=== PATIENT | female | born 1955 | race Hispanic/Latino ===

== ENCOUNTER 2019-07-14 23:49 | Inpatient (IN) | payer SELFPAY ==
[2019-07-15 00:34] LABS: #Basophils 0.1 thou/uL (0.0-0.2); #Eosinphils 0.4 thou/uL (0.0-0.7); #Lymphocytes 3.1 thou/uL (1.20-3.40); #Monocytes 0.8 thou/uL (0.11-0.59); %Basophils 1.2 % (0.0-1.0); %Eosinophils 3.1 % (0.0-10.0); %Lymphocytes 27.1 % (21.0-51.0); %Neutrophils 61.6 % (42.0-75.0); Hemoglobin 8.9 g/dL (12.0-16.0); Mean Corpuscular HGB CONC 32.2 g/dL (32.0-36.0); Mean Corpuscular Hemoglobin 29.3 pg (27.0-31.0); Mean Corpuscular Volume 90.9 fL (78.0-98.0); Platelet Count 239 thou/uL (130-400); RBC Distribution Width 12.7 % (11.5-14.5); Red Blood Cell (RBC) Count 3.05 mill/uL (4.20-5.40); White Blood Cell (WBC) Count 11.3 thou/uL (4.8-10.8)
[2019-07-15] MEDS ORDERED: Aspirin Chewable 81 MG TAB ONE (00:41)
[2019-07-15 00:59] LABS: ALT (SGPT) 15 U/L (8-55); AST (SGOT) 18 U/L (5-34); Albumin 2.5 g/dL (3.4-4.8); Alkaline Phosphatase 170 U/L (40-110); Anion Gap 15 mmol/L (10-20); BUN (Urea Nitrogen) 83 mg/dL (9.8-20.1); Bilirubin, Total 0.2 mg/dL (0.2-1.2); Calc. Creatinine Clearance 0 mL/min (70-130); Calcium 6.5 mg/dL (7.8-10.44); Carbon Dioxide 16 mmol/L (23-31); Chloride 103 mmol/L (98-107); Estimated GFR-MDRD 5; Globulin 3.5 g/dL (2.4-3.5); Glucose 157 mg/dL (80-115); Potassium 6.3 mmol/L (3.5-5.1); Sodium 128 mmol/L (136-145)
[2019-07-15 01:25] LABS: CKMB 14.6 ng/mL (0-6.6)
[2019-07-15 01:56] LABS: Bilirubin Negative (Negative); Blood, Urine 1+ (Negative); Clarity Turbid (Clear); Glucose, Urine (Dipstick) 300 mg/dL (Negative); Leukocyte Negative Leu/uL (Negative); Nitrite Negative (Negative); Protein, Urine (Dipstick) 600 mg/dL (Neg-Trace); RBC/HPF 0-3 HPF (0-3); Urobilinogen Normal mg/dL (Less than 2); Yeast-Budding Rare HPF (None Seen)
[2019-07-15 01:58] LABS: Bacteria/HPF 1+ HPF (None Seen)
[2019-07-15] MEDS ORDERED: Sodium Chloride 0.45% 1,000 ML IV SCH (02:30)
--- NOTE | 2019-07-15 02:40 | PDOC.HHP ---
Hospitalist HPI - History of Present Illness Shortness of breath with exertion History of Present Illness: Ms. Saba Lui presents with shortness of breath on exertion since yesterday and notably worse today. She has been generally weak and fatigued for several days. Reports having lower extremity swelling today. Patient poor historian. Daughter and son in room helping to provide most of her history. She denies any long car rides or flights but per ED reports patient apparently had a recent 12 hour car ride from [place]. ED Course: In the ED she had labs done that were significantly abnormal. Sodium 128, Potassium 6.3, Chloride 103, Carbon Dioxide 16, Anion Gap 15 BUN (Urea Nitrogen) 83, Creatinine 8.59, GFR 5 CKMB 14.6 Troponin I 0.110 BNP 378.5 D-dimer 2.56 WCC 11.3, Hgb 7.9, Hct 27.7, Platelets 239. CXR done. She was given 324 mg of aspirin and 2 L NS. Vitals unremarkable. Hospitalist ROS - Review of Systems Constitutional: reports: weakness, malaise. denies: fever, chills, sweats, other Eyes: denies: pain, vision change, conjunctivae inflammation, eyelid inflammation, redness, other ENT: denies: ear pain, ear discharge, nose pain, nose discharge, nose congestion , mouth pain, mouth swelling, throat pain, throat swelling, other Respiratory: reports: SOB with excertion. denies: cough, dry, shortness of breath, hemoptysis, pleuritic pain, sputum, wheezing, other Cardiovascular: denies: chest pain, palpitations, orthopnea, paroxysmal noc. dyspnea, edema, light headedness, other Gastrointestinal: denies: nausea, vomiting, abdominal pain, diarrhea, constipation, melena, hematochezia, other Genitourinary: denies: dysuria, frequency, incontinence, hematuria, retention, other Musculoskeletal: reports: other (leg swelling bilaterally). denies: neck pain, shoulder pain, arm pain, back pain, hand pain, leg pain, foot pain Skin: denies: rash, lesions, farhana, bruising, other Hospitalist History - Past Medical History Source: patient, family Cardiac: reports: HTN - Social History Smoking Status: Never smoker Alcohol: reports: None Drugs: reports: none Living Situation: With Family - Exam General Appearance: NAD, awake alert Eye: PERRL, anicteric sclera ENT: normocephalic atraumatic, no oropharyngeal lesions Neck: supple, no lymphadenopathy Heart: RRR, no murmur, no gallops, no rubs, normal peripheral pulses Respiratory: CTAB, no wheezes, no rales, no ronchi, normal chest expansion, no tachypnea Gastrointestinal: soft, non-tender, non-distended, normal bowel sounds Extremities: no cyanosis, no clubbing, 2+ LE edema (tense swelling) Neurological: cranial nerve grossly intact Musculoskeletal: normal tone, normal strength, no muscle wasting Psychiatric: normal affect, normal behavior, A&O x 3 Hospitalist Results - Labs Result Diagrams: 07/15/19 03:51 07/15/19 02:25 Lab results: WBC 11.3 thou/uL (4.8-10.8) H 07/15/19 00:23 Hgb 8.9 g/dL (12.0-16.0) L 07/15/19 00:23 Hct 27.7 % (36.0-47.0) L 07/15/19 00:23 MCV 90.9 fL (78.0-98.0) 07/15/19 00:23 Plt Count 239 thou/uL (130-400) 07/15/19 00:23 Neutrophils % 61.6 % (42.0-75.0) 07/15/19 00:23 Sodium 128 mmol/L (136-145) L 07/15/19 00:23 Potassium 6.3 mmol/L (3.5-5.1) H 07/15/19 00:23 Chloride 103 mmol/L (98-107) 07/15/19 00:23 Carbon Dioxide 16 mmol/L (23-31) L 07/15/19 00:23 BUN 83 mg/dL (9.8-20.1) H 07/15/19 00:23 Creatinine 8.59 mg/dL (0.6-1.1) H 07/15/19 00:23 Glucose 157 mg/dL (80-115) H 07/15/19 00:23 Calcium 6.5 mg/dL (7.8-10.44) L 07/15/19 00:23 Total Bilirubin 0.2 mg/dL (0.2-1.2) 07/15/19 00:23 AST 18 U/L (5-34) 07/15/19 00:23 ALT 15 U/L (8-55) 07/15/19 00:23 Alkaline Phosphatase 170 U/L (40-110) H 07/15/19 00:23 CK-MB (CK-2) 14.6 ng/mL (0-6.6) H* 07/15/19 00:23 Troponin I 0.110 ng/mL (< 0.028) H 07/15/19 00:23 B-Natriuretic Peptide 378.5 pg/mL (0-100) H 07/15/19 00:23 Serum Total Protein 6.0 g/dL (6.0-8.3) 07/15/19 00:23 Albumin 2.5 g/dL (3.4-4.8) L 07/15/19 00:23 Urine Ketones Negative mg/dL (Negative) 07/15/19 01:20 Urine Blood 1+ (Negative) A 07/15/19 01:20 Urine Nitrite Negative (Negative) 07/15/19 01:20 Ur Leukocyte Esterase Negative Emily/uL (Negative) 07/15/19 01:20 Urine RBC 0-3 HPF (0-3) 07/15/19 01:20 Urine WBC 7-10 HPF (0-3) A 07/15/19 01:20 Ur Squamous Epith Cells 11-20 HPF (0-3) A 07/15/19 01:20 Urine Bacteria 1+ HPF (None Seen) A 07/15/19 01:20 - EKG Interpretation EKG: NSR, HR 83, No ST changes. - Radiology Interpretation Chest x-ray Status: pending Hospitalist H&P A/P - Problem (1) Exertional shortness of breath Code(s): R06.02 - SHORTNESS OF BREATH Status: Acute (2) Lower extremity edema Code(s): R60.0 - LOCALIZED EDEMA Status: Acute (3) Acute renal failure (ARF) Status: Acute (4) Proteinuria Code(s): R80.9 - PROTEINURIA, UNSPECIFIED Status: Acute (5) Hyperkalemia Code(s): E87.5 - HYPERKALEMIA Status: Acute (6) Hypertension Code(s): I10 - ESSENTIAL (PRIMARY) HYPERTENSION Status: Chronic (7) Diabetes mellitus Code(s): E11.9 - TYPE 2 DIABETES MELLITUS WITHOUT COMPLICATIONS Status: Chronic - Plan Plan: IV fluids given in ED. Repeat BMP to re-assess lytes including Na+, K+, Mg+ and renal function. Consult nephrology. CK added given suspicion for rhabdomyolysis. Echo. Venous doppler. Check stool for occult blood. Continuous cardiac monitoring. PT/OT. Monitor BP. Hold nephrotoxic meds. Monitor glucose. Sliding scale initiated. Code status FULL Surrogate Decision maker is her daughter Sandra Kessler. Addendum - Physician - Physician Attestation Date/Time: 07/15/19 2423 I personally performed or re-performed the physical examination and medical decision making. I have verified all student documentation or findings, including history, physical exam and/or medical decision making. Patient and family deny h/o renal disease, SOB x 1-2 days is main symptom of presentation. K still remains very elevated, insulin and d50 + calcium gluconate ordered, will recheck in about 2 hours. Got thai, nephrology to see in AM, CK borderline
[2019-07-15] MEDS ORDERED: Dextrose 5% in Water 1,000 ML IV PRN (02:52)
[2019-07-15] MEDS ORDERED: Dextrose 50% Abboject 50 ML SYRINGE SLOW IVP PRN (02:52)
[2019-07-15 02:56] LABS: Anion Gap 18 mmol/L (10-20); BUN (Urea Nitrogen) 82 mg/dL (9.8-20.1); Calc. Creatinine Clearance 9 mL/min (70-130); Calcium 6.4 mg/dL (7.8-10.44); Carbon Dioxide 10 mmol/L (23-31); Chloride 105 mmol/L (98-107); Estimated GFR-MDRD 5; Glucose 172 mg/dL (80-115); Magnesium 2.2 mg/dL (1.6-2.6); Sodium 126 mmol/L (136-145); Uric Acid 6.1 mg/dL (2.6-6.0)
[2019-07-15 03:06] LABS: Phosphorus 9.2 mg/dL (2.3-4.7); Potassium 6.7 mmol/L (3.5-5.1)
[2019-07-15] MEDS ORDERED: Insulin Regular 300 UNITS/3 ML VIAL IVP SCH (03:45)
[2019-07-15] MEDS ORDERED: Insulin Regular 300 UNITS/3 ML VIAL ONE (03:48)
[2019-07-15] MEDS ORDERED: Calcium Gluconate 9.2 MEQ in Sodium Chloride 0.9% 100 ML IVPB SCH (04:00)
[2019-07-15 04:04] LABS: #Basophils 0.1 thou/uL (0.0-0.2); #Eosinphils 0.3 thou/uL (0.0-0.7); #Lymphocytes 1.8 thou/uL (1.20-3.40); #Monocytes 0.6 thou/uL (0.11-0.59); #Neutrophils 8.3 thou/uL (1.40-6.50); %Basophils 0.9 % (0.0-1.0); %Eosinophils 2.3 % (0.0-10.0); %Lymphocytes 16.5 % (21.0-51.0); %Monocytes 5.4 % (0.0-10.0); %Neutrophils 74.9 % (42.0-75.0); Hemoglobin 9.1 g/dL (12.0-16.0); Mean Corpuscular HGB CONC 32.4 g/dL (32.0-36.0); Mean Corpuscular Hemoglobin 29.4 pg (27.0-31.0); Mean Corpuscular Volume 90.6 fL (78.0-98.0); Mean Platelet Volume 9.4 fL (7.4-10.4); Platelet Count 245 thou/uL (130-400); RBC Distribution Width 12.7 % (11.5-14.5); Red Blood Cell (RBC) Count 3.08 mill/uL (4.20-5.40)
[2019-07-15] MEDS ORDERED: Dextrose 50% Abboject 50 ML SYRINGE ONE ×2 (04:10→08:04)
[2019-07-15] MEDS: Dextrose 50% Abboject 50 ML SYRINGE SLOW IVP SCH ×2 (04:10→08:13)
[2019-07-15 04:22] LABS: Phosphorus 9.3 mg/dL (2.3-4.7)
[2019-07-15 04:26] LABS: Troponin I 0.095 ng/mL (< 0.028)
[2019-07-15] MEDS ORDERED: Acetaminophen 325 MG/10.15 ML UDCUP PO PRN (04:46)
[2019-07-15] MEDS ORDERED: Acetaminophen 325 MG TAB ONE (05:07)
[2019-07-15 07:36] LABS: Anion Gap 16 mmol/L (10-20); BUN (Urea Nitrogen) 79 mg/dL (9.8-20.1); Calc. Creatinine Clearance 9 mL/min (70-130); Calcium 6.3 mg/dL (7.8-10.44); Carbon Dioxide 14 mmol/L (23-31); Chloride 109 mmol/L (98-107); Estimated GFR-MDRD 5; Glucose 117 mg/dL (80-115); Sodium 133 mmol/L (136-145)
[2019-07-15 07:42] LABS: Troponin I 0.094 ng/mL (< 0.028)
--- NOTE | 2019-07-15 08:05 | RAD ---
EXAM: CHEST ONE VIEW HISTORY: Shortness of breath. COMPARISON: None FINDINGS: Cardiac silhouette is magnified by projection and depth of inspiration. Pulmonary vasculature is bord daniel increased. There is mild prominence of the perihilar interstitial densities. While this could be related to technique and depth of inspiration, and element of mild pulmonary edema is a poss ibility. A small left pleural effusion and atelectasis is present.. Mild degenerative changes are seen in the spine. IMPRESSION: 1. Small left pleural effusion and atelectasis. 2. Mild prominence of perihilar interstitial densities which could be related to an element of mild p ulmonary edema. Follow-up chest x-ray is suggested.
--- NOTE | 2019-07-15 08:33 | ULT ---
PRELIMINARY REPORT/[facility]/EMERGENCY AFTER HOURS PROCEDURE: EXAM: US Duplex bilateral Lower Extremity Veins. CLINICAL HISTORY: BLE pain/edema TECHNIQUE: Real-time ultrasound scan of the veins of the bilateral lower extremity with color Doppler flow, spec tral waveform analysis and compression. COMPARISON: None provided. FINDINGS: DEEP VEINS: The common femoral, femoral, and popliteal veins are echolucent and compressible. These v essels demonstrate respiratory variation and augmentation. There is normal color Doppler flow through out. The visualized calf veins are also patent. SUPERFICIAL VEINS: The visualized greater saphenous vein is patent. SOFT TISSUES: No popliteal fossa cyst or other abnormalities. IMPRESSION: No deep venous thrombosis in the bilateral lower extremity. ELECTRONICALLY SIGNED BY: David Grace MD Jul 15, 2019 3:32:35 AM ANIMAL RIDE MANAGER This report is intended for review by the ordering physician only, in accordance of law. If you recei ve this report in error, please call [facility] at [phone]. FINAL REPORT EMERGENCY AFTER HOURS BILATERAL LOWER EXTREMITY VENOUS DUPLEX ULTRASOUND INCLUDING COLOR AND SPECTRAL DOPPLER IMAGING: DATE: 07/15/2019 HISTORY: Bilateral lower extremity edema and pain. TECHNIQUE: Exam performed from groin to ankle, including visualized greater saphenous, common femoral, superfici al femoral, profunda femoral, popliteal, trifurcation, and posterior tibial vein regions. FINDINGS: There is phasic flow at all levels with normal compressibility. No intraluminal thrombus. IMPRESSION: No evidence for deep venous thrombosis. This report is in agreement with preliminary report by [facility]. POS: OFF
[2019-07-15] MEDS ORDERED: Allopurinol 300 MG TAB PO SCH (09:00)
[2019-07-15] MEDS ORDERED: Sodium Bicarbonate 150 MEQ in Dextrose 5% in Water 1,000 ML IV SCH (09:30)
[2019-07-15] MEDS ORDERED: Furosemide 100 MG/10 ML VIAL SLOW IVP SCH (10:30)
--- NOTE | 2019-07-15 10:59 | ULT ---
COMPLETE BILATERAL RENAL ULTRASOUND: HISTORY: Acute kidney injury. FINDINGS: The right kidney measures 10.1 x 3.8 x 4.3 cm. The left kidney measures 10.5 x 4.7 x 4.9 cm. There is a 1.2 x 1.3 x 1.4 cm right renal cyst. There is no renal hydronephrosis. Bilateral renal cor tices show increased echogenicity, evidence for nonspecific chronic renal disease. There is a Merritt c atheter within the urinary bladder so that the bladder is empty. IMPRESSION: Small right renal cyst. No hydronephrosis. Echogenic renal cortices bilaterally, evidence for nonspec ific chronic renal disease. No renal hydronephrosis. POS: OFF
[2019-07-15] MEDS ORDERED: Ondansetron ODT 4 MG TAB PO PRN (11:43)
[2019-07-15] MEDS ORDERED: Acetaminophen 325 MG TAB PO PRN (11:43)
[2019-07-15] MEDS ORDERED: Ondansetron PF 4 MG/2 ML Vial IVP PRN (11:43)
[2019-07-15] MEDS ORDERED: Calcium Carbonate 500 MG ChewTAB PO PRN (11:43)
[2019-07-15] MEDS: Sodium Bicarbonate 150 MEQ in Dextrose 5% in Water 1,000 ML IV SCH (11:54)
[2019-07-15] MEDS ORDERED: Furosemide 40 MG/4 ML VIAL ONE (12:01)
[2019-07-15 12:08] LABS: Hemoglobin A1c 8.4 % (4.0-6.0)
[2019-07-15 15:23] LABS: Albumin 2.4 g/dL (3.4-4.8); Anion Gap 16 mmol/L (10-20); BUN (Urea Nitrogen) 80 mg/dL (9.8-20.1); BUN/Creatinine Ratio 9.31; Calc. Creatinine Clearance 8 mL/min (70-130); Calcium 6.5 mg/dL (7.8-10.44); Carbon Dioxide 15 mmol/L (23-31); Chloride 107 mmol/L (98-107); Estimated GFR-MDRD 5; Glucose 164 mg/dL (80-115); Sodium 133 mmol/L (136-145)
[2019-07-15 15:34] LABS: Phosphorus 9.1 mg/dL (2.3-4.7)
[2019-07-15] MEDS ORDERED: cloNIDine 0.1 MG TAB PO PRN (16:50)
[2019-07-15] MEDS ORDERED: NIFEdipine XL 30 MG TAB PO SCH ×2 (17:00→21:00)
[2019-07-15] MEDS: hydrALAZINE 20 MG/ML VIAL SLOW IVP PRN (17:05)
[2019-07-15] MEDS ORDERED: CEFAZOLIN 2 GM in Premix Bag 1 BAG IVPB SCH (17:15)
--- NOTE | 2019-07-15 17:21 | CON ---
DATE OF CONSULTATION: 07/15/2019 SERVICE: Nephrology. REASON FOR CONSULTATION: Hyperkalemia and elevated creatinine. REQUESTING PHYSICIAN: Tony Armstrong MD. HISTORY OF PRESENT ILLNESS: A 63-year-old female with known history of hypertension, who presented to the emergency room yesterday, July 14, due to acute onset of shortness of breath and chest pain, described as tightness and pleuritic. The patient also reported bilateral leg edema, which has been there for some time, as well as generalized weakness and fatigue. Further evaluation revealed elevated potassium at 6.3 as well as elevated creatinine at 8.59. The patient reportedly was told she had kidney disease several months ago in [place] and also follows up at [facility], but has not seen any recreation clerk. She also reported history of diabetes. The patient overall is a poor historian and was unable to provide any significant history as to when she was told she had chronic kidney disease. She also was unable to provide her medication list. Given abnormal labs, the patient was treated with IV fluids, but repeat renal function panel showed worsening potassium of 6.7. Hence, Nephrology consult was obtained to help in the management of hyperkalemia and abnormal renal function test. The patient denied nausea, vomiting, frequent loose stool, dysuria, hematuria, hematochezia, or hematemesis. Chest pain and shortness of breath have improved. There is no history of fever, dysuria, or focal weakness. PAST MEDICAL HISTORY: 1. Hypertension. 2. Diabetes mellitus. PAST SURGICAL HISTORY: None. FAMILY HISTORY: Significant for diabetes and heart disease in father as well as thyroid disease in mother. Both parents are diseased. There is no history of end-stage renal disease in parents or relatives. SOCIAL HISTORY: The patient lives with relatives. Denied smoking or alcohol use. ALLERGIES: NO KNOWN DRUG ALLERGY REPORTED. HOME MEDICATION: The patient does not know what she takes at home. However, son promised to bring all her medication. REVIEW OF SYSTEMS: A 12-point review of system performed was negative other than pertinent positives and negatives included in the history of present illness. PHYSICAL EXAMINATION: VITAL SIGNS: Temperature 97.6, pulse 88, respiratory rate 16, SpO2 of 98% on room air, and blood pressure is 146/86. GENERAL: Female, in no obvious distress. Afebrile. Anicteric. Acyanotic. HEENT: Normocephalic, atraumatic. Oral mucosa is moist. NECK: Supple with no JVD. CARDIOVASCULAR: Regular rhythm and rate with normal heart sounds one and two. RESPIRATORY: Fair air entry bilaterally with few transmitted breath sounds, but no obvious crackle, rhonchi, or use of accessory muscles. GI: Full, soft, nontender, and nondistended with normal bowel sounds. EXTREMITIES: Ffvy-on-yhbmorst bilateral leg edema noted. No erythema appreciated. UNDERCOAT SPRAYER: Conscious, alert, and oriented x2 with appropriate mental status. Cranial nerves II through XII are grossly intact. The patient moves all extremities. DIAGNOSTIC DATA: CBC today showed WBC count of 11, hemoglobin of 9.1, MCV of 90.6, and platelet of 245. Coagulation panel showed D-dimer of 2.56. BMP today showed sodium 133, potassium 6.0, chloride 109, CO2 of 14, BUN 79, creatinine 8.27, glucose 117, and calcium 6.3. Prior to that, albumin was noted to be 2.5. Urinalysis showed turbid yellow urine with pH of 6.0, specific gravity of 1.015, urine protein of 600 mg/dL, urine glucose of 300, negative ketone, 1+ blood, and negative nitrite, bilirubin, and leukocyte esterase. Microscopy showed 0 to 3 rbc and 7 to 10 wbc with 1+ bacteria. Chest x-ray showed small left pleural effusion and atelectasis as well as mild prominence of perihilar interstitial densities, which could relate to an element of mild pulmonary edema. Bilateral lower extremity Dopplers were negative for DVT. Initial troponin was 0.110. ASSESSMENT: 1. Renal failure: Acuity is unclear. The patient seemed to have chronic kidney disease. Acute reversible component cannot be ruled out. The patient with hypertension and diabetes seems to have complications of that because of chronic kidney disease. 2. Hyperkalemia: Due to renal insufficiency. 3. Acute cardiac decompensation, given pulmonary congestion as well as bilateral leg edema and shortness of breath. 4. History of hypertension. 5. History of diabetes mellitus diagnosed about 19 years ago. 6. Proteinuria. 7. Hypocalcemia. 8. Metabolic acidosis: Due to renal insufficiency. 9. Elevated troponin. PLAN: 1. We will give the patient IV Lasix 80 mg given pulmonary congestion on chest x-ray as well as bilateral leg edema. This will also help with hyperkalemia. We will also give the patient Kayexalate. 2. We will get urine electrolytes. 3. We will also get renal ultrasound. 4. Echocardiogram has been ordered to assess cardiac function. 5. We will recheck BMP at 16 hours to ascertain improvement of hyperkalemia. 6. We will also get intact PTH as well as vitamin D and treat hypokalemia with potassium supplementation. 7. I have asked the patient's son to get the patient medication, so that we could review that and know what the patient is on. 8. Further treatment to follow depending on hospital course and review of other diagnostic test. 9. There is no urgent need for hemodialysis in this patient unless hyperkalemia worsens. Job ID: [id number]
--- NOTE | 2019-07-15 18:19 | CON ---
DATE OF CONSULTATION: HISTORY OF PRESENT ILLNESS: Shante Lui is a 63-year-old female reports to the emergency room, end-stage renal disease, potassium of 5. I have been asked by Dr. Morrison to see her regarding establishment of dialysis access. She has comorbidities of morbid obesity, diabetes, and hypertension, 4 feet 9 inches, 171 pounds. She is Jordanian-speaking only. Her family is here to interpret. Medication list is not provided and family is bringing that in. She does take insulin and antihypertensive at home. ALLERGIES: NONE. SOCIAL HISTORY: Tobacco none. Alcohol none. Nifedipine, insulin and other medications, she will bring a list. PAST SURGICAL HISTORY: Noncontributory. PAST MEDICAL HISTORY: History of morbid obesity, metabolic syndrome, hypertension, diabetes. PHYSICAL EXAMINATION: VITAL SIGNS: 4 feet 9 inches, 171 pounds. 97.5 degrees, 91, 191/117. HEAD, EARS, EYES, nose and THROAT: Unremarkable. LUNGS: Clear to auscultation. CARDIAC: Regular rate and rhythm without murmur or gallop. ABDOMEN: Soft, obese, IV left hand. EXTREMITIES: Edematous. LABORATORY DATA: White count 11, hemoglobin 9.1. Hemoglobin A1c 8.4, potassium 5, GFR 5. ASSESSMENT AND PLAN: End-stage renal disease. PLAN: Placement of cuffed tunneled hemodialysis catheter tomorrow as well as a central line to provide IV access and blood draws. We will plan placement of a left or right arm fistula pending vein mapping tomorrow. N.p.o. after midnight. Job ID: [id number]
--- NOTE | 2019-07-15 18:20 | ULT ---
BILATERAL UPPER EXTREMITY VEIN MAPPIN07/15/19 HISTORY: End-stage renal disease, evaluation for dialysis access. RIGHT UPPER EXTREMITY BRACHIAL ARTERY: 3.4 mm RADIAL ARTERY: 1.5 mm ULNAR ARTERY: 1.9 mm CEPHALIC VEIN Proximal Humerus: 4.4 mm Mid Humerus: 3.3 mm Distal Humerus: 2.8 mm Elbow: 2.6 mm Proximal Forearm: 1.9 mm Mid Forearm: 1.6 mm Distal Forearm: 1.6 mm BASILIC VEIN Proximal Humerus: 3.4 mm Mid Humerus: 3.7 mm Distal Humerus: 3.2 mm Elbow: 1.5 mm Proximal Forearm: 1.7 mm Mid Forearm: 2.2 mm Distal Forearm: 1.3 mm LEFT UPPER EXTREMITY BRACHIAL ARTERY: 3.5 mm RADIAL ARTERY: 1.5 mm ULNAR ARTERY: 1.6 mm CEPHALIC VEIN Proximal Humerus: 2.9 mm Mid Humerus: 2.3 mm Distal Humerus: 2.1 mm Elbow: 1.7 mm Proximal Forearm: 2.2 mm Mid Forearm: 1.5 mm Distal Forearm: 1.8 mm BASILIC VEIN Proximal Humerus: 5.8 mm Mid Humerus: 4.9 mm Distal Humerus: 3.3 mm Elbow: 2.9 mm Proximal Forearm: 1.6 mm Mid Forearm: 1.3 mm Distal Forearm: 1.2 mm IMPRESSION: Vein mapping as noted above. POS: BRENNAN
[2019-07-15] MEDS ORDERED: Nitroglycerin 2% Ointment 1 INCH/1 GM Packet TOP PRN (18:25)
[2019-07-15] MEDS: HumaLOG 300 UNITS/3 ML VIAL SC PRN (19:06)
[2019-07-15] MEDS ORDERED: Famotidine 20 MG TAB PO SCH (21:00)
[2019-07-15] MEDS ORDERED: Ergocalciferol 1.25 MG(50,000 UNITS) CAP PO SCH (21:15)
[2019-07-15] MEDS: Heparin 5,000 UNITS/ML VIAL SC SCH (21:33)
[2019-07-15] MEDS: Sodium Bicarbonate Tab 325 MG TAB PO SCH (21:34)
[2019-07-15] MEDS: Senokot S 8.6-50 MG TAB PO SCH (21:34)
[2019-07-16 00:07] LABS: Creatinine, Urine 37.18 mg/dL (47-110)
[2019-07-16 04:53] LABS: #Basophils 0.1 thou/uL (0.0-0.2); #Eosinphils 0.2 thou/uL (0.0-0.7); #Lymphocytes 1.5 thou/uL (1.20-3.40); #Monocytes 0.4 thou/uL (0.11-0.59); #Neutrophils 5.2 thou/uL (1.40-6.50); %Eosinophils 2.3 % (0.0-10.0); %Lymphocytes 20.7 % (21.0-51.0); %Monocytes 5.8 % (0.0-10.0); %Neutrophils 70.2 % (42.0-75.0); Mean Corpuscular HGB CONC 32.2 g/dL (32.0-36.0); Mean Corpuscular Hemoglobin 29.6 pg (27.0-31.0); Mean Corpuscular Volume 91.9 fL (78.0-98.0); Mean Platelet Volume 9.6 fL (7.4-10.4); Platelet Count 218 thou/uL (130-400); RBC Distribution Width 12.9 % (11.5-14.5); Red Blood Cell (RBC) Count 2.72 mill/uL (4.20-5.40); White Blood Cell (WBC) Count 7.4 thou/uL (4.8-10.8)
[2019-07-16 05:06] LABS: Albumin 2.1 g/dL (3.4-4.8); Anion Gap 19 mmol/L (10-20); BUN (Urea Nitrogen) 82 mg/dL (9.8-20.1); Calc. Creatinine Clearance 8 mL/min (70-130); Calcium 6.4 mg/dL (7.8-10.44); Carbon Dioxide 12 mmol/L (23-31); Chloride 109 mmol/L (98-107); Estimated GFR-MDRD 5; Glucose 146 mg/dL (80-115); Potassium 4.6 mmol/L (3.5-5.1); Sodium 135 mmol/L (136-145)
[2019-07-16 05:14] LABS: Phosphorus 10.2 mg/dL (2.3-4.7)
[2019-07-16 07:34] LABS: Prothrombin Time 13.5 SEC (12.0-14.7)
[2019-07-16] MEDS: Sodium Bicarbonate 150 MEQ in Dextrose 5% in Water 1,000 ML IV SCH (07:51)
--- NOTE | 2019-07-16 07:57 | PRG ---
DATE OF SERVICE: 07/16/2019 SERVICE: Nephrology. SUBJECTIVE: A 63-year-old female with longstanding hypertension and diabetes, seen in followup for elevated creatinine and potassium. The patient was initially admitted with chest pain and shortness of breath associated with generalized edema and found to have elevated potassium and creatinine. The patient has known history of CKD and has seen some doctors in [place] with creatinine of 1.4 in March 2018. There is no other lab available between then and now. Shortness of breath and chest pain has improved. Denied nausea, vomiting, or abdominal pain. OBJECTIVE: VITAL SIGNS: Temperature 96.9, pulse 88, respiratory rate 16, SpO2 of 93% on room air, blood pressure is 120/57. GENERAL: Female, in no obvious distress. Afebrile. Anicteric. Acyanotic. HEENT: Normocephalic, atraumatic. Oral mucosa is moist. NECK: Supple with no JVD. CARDIOVASCULAR: Regular rhythm and rate with normal heart sounds 1 and 2. RESPIRATORY: Fair air entry bilaterally with few transmitted breath sounds. Work of breathing is not increased. GI: Full, soft, nontender, nondistended with normal bowel sounds. UROGENITAL: Merritt catheter is in place draining some urine. EXTREMITIES: Mild bilateral leg edema noted. Bilateral hand edema also is noted, but no erythema. TARIFF PUBLISHING AGENT: Conscious and alert oriented x3 with appropriate mental status. Cranial nerves 2 through 12 are grossly intact. DIAGNOSTIC DATA: CBC showed WBC count of 7.4, hemoglobin of 8.0, MCV of 91.9, platelet of 218. Renal function panel showed sodium 135, potassium 4.6, chloride 109, CO2 12, BUN 82, creatinine 8.63, glucose 146, EGFR of 5, calcium is 6.4, phosphorus is 10.2, albumin is 2.1. 25-hydroxy vitamin D is 3.5. Intact PTH is 507.3. Echocardiogram showed preserved systolic function with EF of 60% to 65%. Grade 1/3 diastolic dysfunction was noted as well as moderate mitral regurgitation and mildly elevated right ventricular systolic pressure estimated at 38. ASSESSMENT: 1. Chronic kidney disease stage 5/end-stage renal disease. This is most likely due to diabetic nephropathy as well as hypertensive nephrosclerosis. Documents from [place] showed the patient had markedly elevated blood pressures since 2016 with systolic around 210. Also on March 2018, the patient had creatinine of 1.4. There is no other lab since then up to current. She also admitted to chronic bilateral leg edema. Estimated glomerular filtration rate of 5 is consistent with end-stage renal disease. 2. Hyperkalemia: Due to end-stage renal disease. 3. Hyperphosphatemia. 4. Secondary hyperparathyroidism with PTH of above 500. 5. Anemia in chronic kidney disease. 6. Generalized edema/anasarca due to chronic kidney disease and hypoalbuminemia. 7. Nephrotic range proteinuria with UPC above 10 g/g of creatinine. 8. Vitamin D deficiency. 9. Hypertension: Control is better with addition of nifedipine. PLAN: 1. We will continue IV Lasix for volume management. We will also start the patient on phosphate binder Renvela. 2. We will also start vitamin D supplementation as well as calcitriol and Sensipar for secondary hyperparathyroidism. 3. We will continue antihypertensives. 4. General Surgery consult has been requested for tunneled dialysis catheter as well as AV fistula creation. I had discussed with the patient and relatives at the bedside about end-stage renal disease and need for dialytic treatment. I discussed the two modalities of peritoneal dialysis as well as hemodialysis in center. Due to home situation, the patient and relative elected to proceed with hemodialysis. We will plan on initiating hemodialysis as soon as access could be obtained. Other treatment as per primary attending. Job ID: [id number]
[2019-07-16] MEDS ORDERED: FLU VACC QS2019-20(6MOS UP)/PF 60 MCG/0.5 ML SYRINGE IM ONE (09:00)
[2019-07-16] MEDS ORDERED: Heparin 5,000 UNITS/ML VIAL ONE (09:27)
[2019-07-16] MEDS ORDERED: Heparin 10,000 UNITS/1 ML VIAL ONE (09:27)
[2019-07-16] MEDS ORDERED: Sodium Chloride 0.9% 20 ML ONE (09:28)
[2019-07-16] MEDS ORDERED: Esmolol 100 MG/10 ML VIAL ONE (09:47)
[2019-07-16] MEDS ORDERED: PROPOFOL 200 MG/20 ML VIAL ONE (09:47)
[2019-07-16] MEDS ORDERED: Midazolam HCl 2 mg/2 ml Vial ONE (10:23)
--- NOTE | 2019-07-16 11:36 | RAD ---
Exam: Chest one view portable: HISTORY: ESRD COMPARISON: 07/15/2019 FINDINGS: Right dual-lumen venous access catheter is in place. Bilateral vascular congestion with minimal inter stitial edema progressive from prior study. Small pleural effusions. Left-sided central line in place. IMPRESSION: Right venous access catheter and left central lines are placed. Progressive vascular congestion and s mall pleural effusions. No pneumothorax or pleural effusion.
[2019-07-16 11:39] LABS: Hep B Core Total Ab Non-Reactive (NonReactive); Hep B Surf Ag Non-Reactive S/CO (NonReactive)
[2019-07-16 11:40] LABS: Hep C IgG Ab Non-Reactive (NonReactive); Hep C Index 0.28 S/CO (0-0.79)
[2019-07-16 11:49] LABS: Hep B Core Total Index 0.06 S/CO (0-0.79)
[2019-07-16 11:50] LABS: HBSAg Index 0.14 S/CO (0-0.99)
[2019-07-16] MEDS: Cinacalcet HCl 30 MG TAB PO SCH (12:38)
[2019-07-16] MEDS: Sodium Bicarbonate Tab 325 MG TAB PO SCH ×2 (12:38→19:59)
[2019-07-16] MEDS: NIFEdipine XL 30 MG TAB PO SCH ×2 (12:38→19:59)
[2019-07-16] MEDS: Senokot S 8.6-50 MG TAB PO SCH ×2 (12:38→19:59)
[2019-07-16] MEDS: Calcium Carbonate + Vit D 1 TAB PO SCH ×3 (12:39→19:59)
[2019-07-16] MEDS: Calcitriol 0.25 MCG CAP PO SCH (12:39)
[2019-07-16] MEDS: Furosemide 40 MG/4 ML VIAL SLOW IVP SCH (12:39)
[2019-07-16] MEDS: Heparin 5,000 UNITS/ML VIAL SC SCH ×2 (12:43→19:59)
[2019-07-16] MEDS: Sevelamer Carbonate 800 MG TAB PO SCH ×3 (12:46→17:37)
[2019-07-16] MEDS: Famotidine 20 MG TAB PO SCH (12:47)
--- NOTE | 2019-07-16 12:52 | OP ---
DATE OF PROCEDURE: 07/16/2019 PREOPERATIVE DIAGNOSES: End-stage renal disease, not yet having started dialysis; fluid overload; mild acidosis; obesity; diabetes; hypertension; metabolic syndrome; [place]ian speaking only. POSTOPERATIVE DIAGNOSES: End-stage renal disease, not yet having started dialysis; fluid overload; mild acidosis; obesity; diabetes; hypertension; metabolic syndrome; [place]ian speaking only. PROCEDURES PERFORMED: 1. Placement of right internal jugular cuffed-tunneled hemodialysis catheter, pre-curved AngioDynamics. 2. Placement of left internal jugular central line. 3. Ultrasound and fluoroscopy used. ANESTHESIA: Intravenous sedation and local with 0.5% Marcaine 30 mL mixed with 1% Xylocaine with epinephrine 20 mL. DESCRIPTION OF PROCEDURE: The patient was taken to the operating room, where under intravenous sedation, neck and chest were prepared with ChloraPrep and draped in routine fashion. Local anesthetic was infiltrated in the skin and subcutaneous tissue about the operative site. Ultrasound guidance was used to cannulate both the right and left internal jugular veins. J-wire was threaded. Trocar and catheter were removed. Skin site was enlarged sharply at the J-wire entry site on both sides. Stab incision was made over the right chest. Seldinger technique was used to place a triple-lumen catheter in the left IJ, secured with 3-0 nylon suture, and J-wire was removed. Each port aspirated blood and flushed with saline solution. Using a tunneling device, pre-curved AngioDynamics cuffed-tunneled hemodialysis catheter tunneled between the chest stab incision on the right to the neck incision placing the fabric cuff beneath the skin exit site on the chest. Catheter was secured with 2 interrupted sutures of 3-0 nylon. Sterile dressings were applied. Smaller and medium size dilators were placed over the J-wire into the internal jugular vein and removed. Dilator and Peel-Away sheath were placed over the J-wire into the superior vena cava, and dilator and J-wire were removed. Catheter was placed over the Peel-Away sheath, and the Peel-Away sheath was removed. Platysma was approximated with 4-0 Monocryl, skin with subdermal 4-0 Monocryl, and [place] glue was applied. Each port aspirated blood and flushed with saline solution and heparinized saline solution of 1000 units of heparin per mL indicating volume of the port. Final fluoroscopic images revealed good line placement. The patient tolerated the procedure well. The patient was felt to be medically unsuitable for a fistula placement at this time, and this will be placed next week. Ultrasound vein mapping performed revealed adequate veins on the right superior to the left. We will plan right arm fistula next week. Job ID: [id number]
[2019-07-16 13:06] LABS: HBSAB Concentration 6.14 mIU/mL; Hep B Surf AB NonReactive (NonReactive)
--- NOTE | 2019-07-16 13:14 | PDOC.HOSPP ---
- Subjective Encounter Date: 07/16/19 Encounter Time: 09:00 Subjective: Patient seen and examined for SOB and lower extremity swelling. Patient is luxem[place]ish speaking, son at bedside. States she is feeling better. Denies any sob and chest pain. Denies N/V. No other complaints at this time. No over night events. - Objective Vital Signs & Weight: Vital Signs (12 hours) Temp Pulse Resp BP Pulse Ox 07/16/19 12:38 91 07/16/19 07:40 98.0 F 91 20 133/71 95 07/16/19 04:00 96.9 F L 88 16 120/57 L 93 L Weight Weight 179 lb 7 oz I&O: 07/15/19 07/16/19 07/17/19 06:59 06:59 06:59 Intake Total 480 Output Total 400 Balance 80 Result Diagrams: 07/16/19 04:22 07/16/19 04:22 Additional Labs: Accuchecks 07/16/19 07/15/19 07/15/19 05:54 20:36 17:02 POC Glucose 160 H 168 H 185 H Hospitalist ROS - Review of Systems Constitutional: denies: fever, chills Respiratory: denies: cough, shortness of breath, hemoptysis Cardiovascular: denies: chest pain, palpitations, orthopnea, paroxysmal noc. dyspnea Gastrointestinal: denies: nausea, vomiting, abdominal pain - Medication Medications: Active Medications Generic Name Dose Route Start Last Admin Trade Name Freq PRN Reason Stop Dose Admin Acetaminophen 650 mg 07/15/19 11:43 07/16/19 12:39 Tylenol PO 650 mg Q4H PRN Administration Headache/Fever/Mild Pain (1-3) Calcitriol 0.25 mcg 07/16/19 09:00 07/16/19 12:39 Rocaltrol PO 0.25 mcg DAILY LUISA Administration Calcium/Vitamin D 1 tab 07/16/19 09:00 07/16/19 12:39 Caltrate 600 + Vit D PO 1 tab TID LUISA Administration Cinacalcet 30 mg 07/16/19 08:00 07/16/19 12:38 Sensipar PO 30 mg QAM-WM LUISA Administration Famotidine 20 mg 07/16/19 09:00 07/16/19 12:47 Pepcid PO 20 mg DAILY LUISA Administration Furosemide 40 mg 07/16/19 09:00 07/16/19 12:39 Lasix SLOW IVP 40 mg DAILY LUISA Administration Heparin Sodium (Porcine) 5,000 units 07/15/19 21:00 07/16/19 12:43 Heparin SC Not Given BID LUISA Hydralazine HCl 10 mg 07/15/19 16:50 07/15/19 17:05 Apresoline SLOW IVP 10 mg Q4H PRN Administration SBP Greater Than 180 Sodium Bicarbonate 150 meq/ 1,150 mls @ 50 mls/hr 07/15/19 10:19 07/16/19 07: 51 Dextrose/Water IV 1,150 mls .Q23H LUISA Administration Insulin Human Lispro 0 units 07/15/19 02:52 07/15/19 19:06 Humalog SC 2 unit .MILD SLIDING SCALE PRN Administration Mild Correctional Scale Nifedipine 30 mg 07/16/19 09:00 07/16/19 12:38 Procardia Xl PO 30 mg BID LUISA Administration Senna/Docusate Sodium 2 tab 07/15/19 21:00 07/16/19 12:38 Senokot S PO 2 tab BID LUISA Administration Sevelamer Carbonate 1,600 mg 07/16/19 08:00 07/16/19 12:47 Renvela PO Not Given TID-WM LUISA Sodium Bicarbonate 650 mg 07/15/19 21:00 07/16/19 12:38 Bicarbonate, Sodium PO 650 mg BID LUISA Administration - Exam General Appearance: negative: awake alert Eye: negative: anicteric sclera Neck: negative: supple, no JVD Heart: normal peripheral pulses. negative: RRR, no murmur, no gallops, no rubs Respiratory: CTAB. negative: no wheezes, no rales, no ronchi Gastrointestinal: soft, non-tender, normal bowel sounds Extremities: no cyanosis, 1+ LE edema Neurological: cranial nerve grossly intact, no focal deficits Hosp A/P - Plan DVT proph w/heparin, GI proph Impression: Fluid volume overload, SOB Acute on chronic renal failure ESRD metabolic acidosis Hyperkalemia / Hypophospotemia / Hyponatremia Anemia Hyperparathyroidism Vitamin D deficiency HF with preserved EF - EF 60-65% with grade 1/3 diastolic dysfunction HTN DMII Morbid obesity Plan: Patient schedule for Hemosplit today Will begin HD when appropriate Continue lasix and kayexalate Monitor electrolytes Iron studies ordered Appreciate Nephology consultation Continue sliding scale and accuchecks Continue GI / DVT prophylaxis Patient seen and examined with SERVICE LINE LAYER Larry Sorenson. Feeling better. Dialysis access today. Agrees with above note/plan of care. Cont IVF with bicarb for metabolic acidosis. Cont Vit D replacement. Nephrology/Surgery input appreciated. AM labs Tony Armstrong
[2019-07-16] MEDS: HumaLOG 300 UNITS/3 ML VIAL SC PRN (18:49)
[2019-07-17 05:22] LABS: Iron Binding Capacity, Total 185 mcg/dL (265-497)
[2019-07-17 05:23] LABS: Iron 38 ug/dL (50-170)
[2019-07-17 05:25] LABS: Albumin 2.2 g/dL (3.4-4.8); Anion Gap 14 mmol/L (10-20); BUN (Urea Nitrogen) 52 mg/dL (9.8-20.1); BUN/Creatinine Ratio 7.69; Calc. Creatinine Clearance 11 mL/min (70-130); Calcium 6.6 mg/dL (7.8-10.44); Carbon Dioxide 24 mmol/L (23-31); Chloride 104 mmol/L (98-107); Estimated GFR-MDRD 6; Glucose 222 mg/dL (80-115); Iron Binding Capacity, Total 186 mcg/dL (265-497); Phosphorus 6.4 mg/dL (2.3-4.7); Potassium 3.7 mmol/L (3.5-5.1); Sodium 138 mmol/L (136-145)
[2019-07-17] MEDS ORDERED: EPOETIN ALFA-EPBX (ESRD) 10,000 UNIT/ML VIAL SC SCH (08:00)
[2019-07-17] MEDS ORDERED: Epoetin (ESRD) 10,000 UNITS/ML VIAL SC SCH (08:00)
[2019-07-17] MEDS: Sodium Bicarbonate Tab 325 MG TAB PO SCH (09:01)
[2019-07-17] MEDS: Cinacalcet HCl 30 MG TAB PO SCH (09:02)
[2019-07-17] MEDS: Calcium Carbonate + Vit D 1 TAB PO SCH ×3 (09:02→21:33)
[2019-07-17] MEDS: Sevelamer Carbonate 800 MG TAB PO SCH ×3 (09:02→17:05)
[2019-07-17] MEDS: Famotidine 20 MG TAB PO SCH (09:02)
[2019-07-17] MEDS: Senokot S 8.6-50 MG TAB PO SCH ×2 (09:03→21:35)
[2019-07-17] MEDS: Furosemide 40 MG/4 ML VIAL SLOW IVP SCH (09:03)
[2019-07-17] MEDS: Calcitriol 0.25 MCG CAP PO SCH (09:12)
[2019-07-17] MEDS: NIFEdipine XL 30 MG TAB PO SCH (09:12)
[2019-07-17] MEDS: Iron, Sodium Ferric Gluconate 250 MG in Sodium Chloride 0.9% 250 ML 250 ML IVPB SCH (09:12)
[2019-07-17] MEDS: Heparin 5,000 UNITS/ML VIAL SC SCH ×2 (09:13→21:43)
[2019-07-17] MEDS ORDERED: Heparin 10,000 UNITS/ 10 ML VIAL ONE (12:08)
--- NOTE | 2019-07-17 12:12 | PRG ---
DATE OF SERVICE: 07/17/2019 SERVICE: Nephrology. SUBJECTIVE: A 63-year-old female seen in followup for management of renal failure, now deemed end-stage renal disease and initiated on hemodialysis. No new problem. The patient had first session of hemodialysis yesterday for 2 hours. Well tolerated. Denied nausea or shortness of breath or fever. Edema persists. OBJECTIVE: VITAL SIGNS: Temperature 98, pulse 93, respiratory rate 20, SpO2 of 98% on room air, blood pressure is 184/86. GENERAL: Obese female, in no obvious distress. Afebrile. Anicteric. Acyanotic. HEENT: Normocephalic, atraumatic. Oral mucosa is moist. CARDIOVASCULAR: Regular rhythm and rate with normal heart sounds 1 and 2. RESPIRATORY: Fair air entry bilaterally with few bibasilar crackles posteriorly. GI: Obese, soft, nontender, nondistended with normal bowel sounds. UROGENITAL: Merritt catheter is in place draining some urine. EXTREMITIES: [id number] bilateral edema of the extremities noted. LEGAL EXAMINER: Conscious, alert, oriented x3 with appropriate mental status. Cranial nerves 2 through 12 are grossly intact. DIAGNOSTIC DATA: Renal function panel showed sodium 138, potassium 3.7, chloride 104, CO2 of 24, BUN 52, creatinine 6.76, glucose 222, calcium 6.6, phosphorus 6.4, albumin 2.2. Iron chemistry showed serum iron 38, TIBC 186 with saturation of 21% and ferritin of 188.29. A 24-hour urine collection for protein is pending. ASSESSMENT: 1. Acute on chronic renal failure, now end-stage renal disease. Initiated on hemodialysis. The patient had first treatment of hemodialysis yesterday for 2 hours. 2. Nephrotic-range proteinuria: Etiology is unclear. Thought to be related to diabetic nephropathy. 3. Generalized swelling. 4. Hypertension: Control is better. Expected to improve further with hemodialysis. 5. Anemia in chronic kidney disease. 6. Metabolic acidosis. 7. Hyperkalemia: Resolved. PLAN: 1. We will dialyze the patient today for 3 hours. 2. We will adjust antihypertensives to get adequate BP control. 3. We will start the patient on IV iron as well as erythrocyte-stimulating agents. 4. We will get renal biopsy to find out if there is any reversible component to the renal failure. 5. Further treatment to follow depending on hospital course. Job ID: [id number]
--- NOTE | 2019-07-17 16:09 | PDOC.HOSPP ---
- Subjective Encounter Date: 07/17/19 Encounter Time: 16:06 Subjective: Pt seen for followup re: esrd needing dialysis. Feels better, no complaints today. - Objective Vital Signs & Weight: Vital Signs (12 hours) Temp Pulse Resp BP Pulse Ox 07/17/19 12:40 89 163/93 H 07/17/19 09:12 93 07/17/19 07:55 98 F 93 20 184/86 H 98 Weight Weight 170 lb 7 oz I&O: 07/16/19 07/17/19 07/18/19 06:59 06:59 06:59 Intake Total 480 790 Output Total 400 1100 Balance 80 -310 Result Diagrams: 07/16/19 04:22 07/17/19 04:13 Additional Labs: Accuchecks 07/17/19 07/16/19 07/16/19 06:32 21:03 18:24 POC Glucose 238 H 231 H 199 H Labs and MARs reviewed by me EKG Reviewed by me: Yes (Tele: NSR) Hospitalist ROS - Review of Systems Respiratory: denies: cough, shortness of breath, SOB with excertion, pleuritic pain, wheezing Cardiovascular: denies: chest pain, palpitations, orthopnea, paroxysmal noc. dyspnea, edema, light headedness - Medication Medications: Active Medications Generic Name Dose Route Start Last Admin Trade Name Freq PRN Reason Stop Dose Admin Acetaminophen 650 mg 07/15/19 11:43 07/16/19 12:39 Tylenol PO 650 mg Q4H PRN Administration Headache/Fever/Mild Pain (1-3) Calcitriol 0.25 mcg 07/16/19 09:00 07/17/19 09:12 Rocaltrol PO 0.25 mcg DAILY LUISA Administration Calcium/Vitamin D 1 tab 07/16/19 09:00 07/17/19 09:02 Caltrate 600 + Vit D PO 1 tab TID LUISA Administration Cinacalcet 30 mg 07/16/19 08:00 07/17/19 09:02 Sensipar PO 30 mg QAM-WM LUISA Administration Famotidine 20 mg 07/16/19 09:00 07/17/19 09:02 Pepcid PO 20 mg DAILY LUISA Administration Furosemide 40 mg 07/16/19 09:00 07/17/19 09:03 Lasix SLOW IVP 40 mg DAILY LUISA Administration Heparin Sodium (Porcine) 5,000 units 07/15/19 21:00 07/17/19 09:13 Heparin SC Not Given BID LUISA Hydralazine HCl 10 mg 07/15/19 16:50 07/15/19 17:05 Apresoline SLOW IVP 10 mg Q4H PRN Administration SBP Greater Than 180 Ferric Sodium Gluconate 270 mls @ 135 mls/hr 07/17/19 09:00 07/17/19 09:12 Complex 250 mg/ Sodium IVPB 07/18/19 10:59 270 mls Chloride DAILY LUISA Administration Insulin Human Lispro 0 units 07/15/19 02:52 07/16/19 18:49 Humalog SC 2 unit .MILD SLIDING SCALE PRN Administration Mild Correctional Scale Nifedipine 30 mg 07/16/19 09:00 07/17/19 09:12 Procardia Xl PO 30 mg BID LUISA Administration Senna/Docusate Sodium 2 tab 07/15/19 21:00 07/17/19 09:03 Senokot S PO 2 tab BID LUISA Administration Sevelamer Carbonate 1,600 mg 07/16/19 08:00 07/17/19 13:29 Renvela PO 1,600 mg TID-WM LUISA Administration - Exam General - other findings: Obese Eye: anicteric sclera ENT: moist mucosa Neck: supple, no JVD Heart: RRR Respiratory: CTAB, no rales Gastrointestinal: soft, non-tender Psychiatric: normal affect, normal behavior Hosp A/P - Plan Impression: ESRD needing dialysis metabolic acidosis Anemia of chronic disease Hyperparathyroidism Vitamin D deficiency HF with preserved EF - EF 60-65% with grade 1/3 diastolic dysfunction HTN DMII Morbid obesity Plan: Pt had dialysis yesterday and today. Clinically improving. Monitor electrolytes Iron studies ordered Continue sliding scale and accuchecks Hypoalbuminemia. Continue GI / DVT prophylaxis
[2019-07-17] MEDS: hydrALAZINE 20 MG/ML VIAL SLOW IVP PRN (16:58)
[2019-07-17] MEDS: HumaLOG 300 UNITS/3 ML VIAL SC PRN ×2 (18:07→21:45)
[2019-07-17 18:20] LABS: Body Surface Area 1.67
[2019-07-17 18:36] LABS: Creatinine, Urine 25.48 mg/dL (47-110)
[2019-07-17] MEDS ORDERED: NIFEdipine XL 30 MG TAB PO SCH (19:00)
[2019-07-17] MEDS ORDERED: cloNIDine 0.2 MG TAB PO SCH (19:00)
[2019-07-17] MEDS ORDERED: hydrALAZINE 25 MG TAB PO SCH (21:00)
[2019-07-17] MEDS: NIFEdipine XL 60 MG TAB PO SCH (21:35)
--- NOTE | 2019-07-18 00:45 | PDOC.EVN ---
Event Note - Event Note Event Note: Madeline RN on Oncology called this past evening to state she was told in report from Tele that patient's SBP was still in the 180-200's after medication was given and was worried about getting patient w/o a monitor since medication had not helped. Stated patient could stay on Tele overnight if there was a concern.
[2019-07-18 07:21] LABS: Albumin 2.2 g/dL (3.4-4.8); Anion Gap 12 mmol/L (10-20); BUN (Urea Nitrogen) 34 mg/dL (9.8-20.1); BUN/Creatinine Ratio 6.12; Calc. Creatinine Clearance 12 mL/min (70-130); Calcium 7.4 mg/dL (7.8-10.44); Carbon Dioxide 28 mmol/L (23-31); Chloride 100 mmol/L (98-107); Estimated GFR-MDRD 8; Glucose 216 mg/dL (80-115); Phosphorus 5.1 mg/dL (2.3-4.7); Potassium 3.9 mmol/L (3.5-5.1); Sodium 136 mmol/L (136-145)
[2019-07-18] MEDS: Cinacalcet HCl 30 MG TAB PO SCH (07:55)
[2019-07-18] MEDS: Calcitriol 0.25 MCG CAP PO SCH (07:55)
[2019-07-18] MEDS: Sevelamer Carbonate 800 MG TAB PO SCH ×3 (07:55→17:45)
[2019-07-18] MEDS: Famotidine 20 MG TAB PO SCH (07:55)
[2019-07-18] MEDS: Calcium Carbonate + Vit D 1 TAB PO SCH (07:55)
[2019-07-18] MEDS: NIFEdipine XL 60 MG TAB PO SCH ×2 (07:55→22:06)
[2019-07-18] MEDS: Lisinopril 20 MG TAB PO SCH (07:56)
[2019-07-18] MEDS: Iron, Sodium Ferric Gluconate 250 MG in Sodium Chloride 0.9% 250 ML 250 ML IVPB SCH (07:56)
[2019-07-18] MEDS: Furosemide 80 MG TAB PO SCH ×2 (07:56→07:58)
[2019-07-18] MEDS: Senokot S 8.6-50 MG TAB PO SCH ×2 (07:56→22:07)
[2019-07-18] MEDS: Heparin 5,000 UNITS/ML VIAL SC SCH ×2 (07:58→22:10)
[2019-07-18] MEDS: HumaLOG 300 UNITS/3 ML VIAL SC PRN ×2 (13:26→17:45)
--- NOTE | 2019-07-18 15:03 | PDOC.HOSPP ---
- Subjective Encounter Date: 07/18/19 Encounter Time: 11:00 Subjective: Pt seen for followup for end stage renal disease needing dialysis. - Objective Vital Signs & Weight: Vital Signs (12 hours) Temp Pulse Resp BP BP Pulse Ox 07/18/19 12:55 98.2 F 89 17 137/87 96 07/18/19 07:56 186/79 H 07/18/19 07:55 102 H 07/18/19 07:44 95 07/18/19 07:29 98.4 F 102 H 16 159/72 H 95 07/18/19 03:41 98.7 F 83 17 167/73 H 96 Weight Weight 166 lb 0.129 oz I&O: 07/17/19 07/18/19 07/19/19 06:59 06:59 06:59 Intake Total 790 240 240 Output Total 1100 2100 Balance -310 -1860 240 Result Diagrams: 07/16/19 04:22 07/18/19 06:50 Additional Labs: Accuchecks 07/18/19 07/18/19 07/17/19 10:34 05:25 20:27 POC Glucose 365 H 218 H 286 H 07/17/19 17:07 POC Glucose 317 H Labs and MARs reviewed by me EKG Reviewed by me: Yes (tele; NSR) Hospitalist ROS - Review of Systems Cardiovascular: denies: chest pain, palpitations, orthopnea, paroxysmal noc. dyspnea, edema, light headedness Gastrointestinal: denies: nausea, vomiting, abdominal pain, diarrhea, constipation, melena, hematochezia - Medication Medications: Active Medications Generic Name Dose Route Start Last Admin Trade Name Johnq PRN Reason Stop Dose Admin Acetaminophen 650 mg 07/15/19 11:43 07/16/19 12:39 Tylenol PO 650 mg Q4H PRN Administration Headache/Fever/Mild Pain (1-3) Calcitriol 0.25 mcg 07/16/19 09:00 07/18/19 07:55 Rocaltrol PO 0.25 mcg DAILY LUISA Administration Calcium/Vitamin D 1 tab 07/18/19 09:00 07/18/19 07:55 Caltrate 600 + Vit D PO 1 tab DAILY LUISA Administration Cinacalcet 30 mg 07/16/19 08:00 07/18/19 07:55 Sensipar PO 30 mg QAM-WM LUISA Administration Clonidine 0.1 mg 07/15/19 16:50 07/17/19 17:51 Catapres PO 0.1 mg Q4H PRN Administration SBP Greater Than 180 Famotidine 20 mg 07/16/19 09:00 07/18/19 07:55 Pepcid PO 20 mg DAILY LUISA Administration Furosemide 80 mg 07/18/19 07:30 07/18/19 07:58 Lasix PO 80 mg DAILY-AC LUISA Administration Heparin Sodium (Porcine) 5,000 units 07/15/19 21:00 07/18/19 07:58 Heparin SC 5,000 units BID LUISA Administration Hydralazine HCl 10 mg 07/15/19 16:50 07/17/19 16:58 Apresoline SLOW IVP 10 mg Q4H PRN Administration SBP Greater Than 180 Insulin Human Lispro 0 units 07/15/19 02:52 07/18/19 13:26 Humalog SC 6 unit .MILD SLIDING SCALE PRN Administration Mild Correctional Scale Insulin Human Lispro 0 units 07/15/19 02:52 07/17/19 21:45 Humalog SC 3 unit .BEDTIME SLIDING SC PRN Administration Bedtime Correctional Scale Lisinopril 20 mg 07/18/19 09:00 07/18/19 07:56 Zestril PO 20 mg DAILY LUISA Administration Nifedipine 60 mg 07/17/19 21:00 07/18/19 07:55 Procardia Xl PO 60 mg BID LUISA Administration Senna/Docusate Sodium 2 tab 07/15/19 21:00 07/18/19 07:56 Senokot S PO 2 tab BID LUISA Administration Sevelamer Carbonate 1,600 mg 07/16/19 08:00 07/18/19 13:26 Renvela PO 1,600 mg TID-WM LUISA Administration - Exam General - other findings: Obese Eye: anicteric sclera ENT: moist mucosa Neck: supple Heart: RRR Respiratory: CTAB Gastrointestinal: soft, non-tender Extremities: no cyanosis Psychiatric: normal affect, normal behavior Hosp A/P - Plan Impression: ESRD needing dialysis metabolic acidosis Anemia of chronic disease Hyperparathyroidism Vitamin D deficiency HF with preserved EF - EF 60-65% with grade 1/3 diastolic dysfunction HTN DMII Morbid obesity Plan: Pt had dialysis yesterday and today. Clinically improving. Pt receiving iron infusion Continue sliding scale and accuchecks Hypoalbuminemia.
--- NOTE | 2019-07-18 17:36 | PRG ---
DATE OF SERVICE: 07/18/2019 SERVICE: Nephrology. SUBJECTIVE: A 63-year-old female, seen in followup for management of acute renal failure, requiring hemodialysis. The patient has history of long-standing diabetes and hypertension and was admitted due to worsening chest pain, worsening shortness of breath and edema. Found to have elevated creatinine. Initiated on hemodialysis and have had . Feeling a lot better with improvement in swelling and overall general condition. OBJECTIVE: VITAL SIGNS: Temperature 98.2, pulse 102, respiratory rate 16, SpO2 of 95% on room air, blood pressure is 159/72. HEENT: Normocephalic and atraumatic. Oral mucosa is moist. NECK: Supple with no JVD. CARDIOVASCULAR: Regular rhythm and rate with normal heart sounds one and two. RESPIRATORY: Fair air entry bilaterally few transmitted breath sounds with no crackle or rhonchi or use of accessory muscles. GI: Obese, soft, nontender, nondistended with normal bowel sounds. UROGENITAL: Merritt catheter is in place draining some urine. EXTREMITIES: Grossly normal looking. Mild bilateral leg edema noted. No erythema appreciated. WELT WHEELER: Conscious, alert, oriented x3 with appropriate mental status. Cranial nerves 2 through 12 are grossly intact. DIAGNOSTIC DATA: Renal function panel showed sodium 136, potassium 3.9, chloride 100, CO2 of 28, BUN 34, creatinine 5.56, glucose 216, calcium 7.4, phosphorus 5.11, albumin 2.2. ASSESSMENT: 1. Hypertension: Control is suboptimal. Blood pressure went up to 190 to 200, requiring increase in antihypertensives. 2. Acute on chronic renal failure, now end-stage on hemodialysis. 3. Nephrotic range proteinuria. 4. Hyperphosphatemia. 5. Secondary hyperparathyroidism. 6. Anemia in chronic kidney disease. 7. Type 2 diabetes mellitus. PLAN: 1. We will add on lisinopril to nifedipine to get adequate blood pressure control. Lisinopril will also help proteinuria. The patient is now on hemodialysis. 2. Electrolytes, volume status, and acid-base are acceptable. We will not be doing hemodialysis today. We will plan to dialyze the patient for 4 hours tomorrow. 3. We will continue diuretic therapy to help with volume management. 4. Further treatment to follow depending on hospital course. 5. AV fistula creation is planned tomorrow by General Surgery. Job ID: [id number]
[2019-07-19 06:01] LABS: Albumin 2.4 g/dL (3.4-4.8); Anion Gap 13 mmol/L (10-20); BUN (Urea Nitrogen) 44 mg/dL (9.8-20.1); BUN/Creatinine Ratio 6.23; Calc. Creatinine Clearance 10 mL/min (70-130); Calcium 7.4 mg/dL (7.8-10.44); Carbon Dioxide 25 mmol/L (23-31); Chloride 100 mmol/L (98-107); Estimated GFR-MDRD 6; Glucose 233 mg/dL (80-115); Phosphorus 5.5 mg/dL (2.3-4.7); Potassium 3.6 mmol/L (3.5-5.1); Sodium 134 mmol/L (136-145)
[2019-07-19] MEDS: Calcitriol 0.25 MCG CAP PO SCH (08:10)
[2019-07-19] MEDS: Sevelamer Carbonate 800 MG TAB PO SCH ×3 (08:10→17:15)
[2019-07-19] MEDS: Famotidine 20 MG TAB PO SCH (08:11)
[2019-07-19] MEDS: Heparin 5,000 UNITS/ML VIAL SC SCH ×2 (08:11→20:01)
[2019-07-19] MEDS: Calcium Carbonate + Vit D 1 TAB PO SCH (08:11)
[2019-07-19] MEDS: NIFEdipine XL 60 MG TAB PO SCH ×2 (08:11→20:06)
[2019-07-19] MEDS: Cinacalcet HCl 30 MG TAB PO SCH (08:11)
[2019-07-19] MEDS: Lisinopril 20 MG TAB PO SCH ×3 (08:12→20:06)
[2019-07-19] MEDS: Senokot S 8.6-50 MG TAB PO SCH ×2 (08:12→20:07)
[2019-07-19] MEDS: Furosemide 80 MG TAB PO SCH (08:13)
--- NOTE | 2019-07-19 11:23 | PRG ---
DATE OF SERVICE: 07/19/2019 SERVICE: Nephrology. SUBJECTIVE: A 63-year-old female, admitted with chest pain and shortness of breath. Found to have renal insufficiency and subsequently started on hemodialysis. Clinically improved. No new problem. Seen in hemodialysis today. OBJECTIVE: VITAL SIGNS: Temperature 98.2, pulse 95, respiratory rate 20, SpO2 of 96% on room air, blood pressure is 169/75. GENERAL: Female, in no obvious distress. Afebrile. Anicteric. Acyanotic. HEENT: Normocephalic, atraumatic. Oral mucosa is moist. CARDIOVASCULAR: Regular rhythm and rate with normal heart sounds 1 and 2. RESPIRATORY: Fair air entry bilaterally with few bibasilar crackles. No rhonchi or use of accessory muscles. GI: Obese, soft, nontender, nondistended with normal bowel sounds. EXTREMITIES: [id number] bilateral leg edema noted. ISOLATION WASHER: Conscious and alert and oriented x3 with appropriate mental status. Cranial nerves 2 through 12 are grossly intact. DIAGNOSTIC DATA: Renal function panel today showed sodium 134, potassium 3.6, chloride 100, CO2 of 25, BUN 44, creatinine 7.06, glucose 233, calcium 7.4, phosphorus 5.5, albumin 2.4. ASSESSMENT: 1. Acute on chronic renal failure, now end-stage renal disease. 2. The end-stage renal disease is presumed to be due to hypertensive nephrosclerosis and diabetic nephropathy. 3. Presumed diabetic nephropathy with nephrotic range proteinuria. 4. Hypertensive kidney disease. 5. BP control is suboptimal. 6. Generalized edema: Due to hypoalbuminemia. 7. Nephrotic range proteinuria. 8. Anemia in chronic kidney disease. 9. Vitamin D deficiency. 10. Secondary hyperparathyroidism. PLAN: 1. We will add carvedilol to nifedipine and lisinopril. We will also increase lisinopril to 20 b.i.d. to get adequate BP control. 2. We will also continue Lasix to help with fluid management. 3. We will dialyze the patient today for 4 hours and continue with Friday, Friday, Friday schedule. 4. We will also continue IV iron as needed as well as Procrit. DISPOSITION: The patient can be discharged once outpatient dialysis chair is arranged. Case Management is helping in this regard. The patient is here for AV fistula creation today by General Surgery. Job ID: [id number]
[2019-07-19] MEDS ORDERED: Heparin 10,000 UNITS/ 10 ML VIAL ONE (11:56)
[2019-07-19] MEDS: HumaLOG 300 UNITS/3 ML VIAL SC PRN ×3 (14:19→20:12)
--- NOTE | 2019-07-19 19:58 | PDOC.HOSPP ---
- Subjective Encounter Date: 07/19/19 Encounter Time: 17:25 - Objective Vital Signs & Weight: Vital Signs (12 hours) Temp Pulse Resp BP BP BP Pulse Ox 07/19/19 19:46 98.8 F 92 16 173/83 H 97 07/19/19 16:00 98.6 F 92 20 161/81 H 97 07/19/19 14:01 98.2 F 96 16 148/78 H 97 07/19/19 09:00 169/77 H 07/19/19 08:12 169/77 H 07/19/19 08:11 95 165/74 H 07/19/19 08:00 98.2 F 95 20 169/75 H 96 Weight Weight 166 lb 0.129 oz I&O: 07/18/19 07/19/19 07/20/19 06:59 06:59 06:59 Intake Total 240 720 720 Output Total 2100 3400 Balance -1860 720 -2680 Result Diagrams: 07/16/19 04:22 07/19/19 05:25 Additional Labs: Accuchecks 07/19/19 07/19/19 07/19/19 16:23 14:04 06:41 POC Glucose 323 H 185 H 244 H 07/19/19 07/18/19 00:49 20:32 POC Glucose 228 H 234 H Microbiology 07/15/19 Unknown Stool Stool Occult Blood (SEJAL) - Final Laboratory Tests 07/15/19 07/15/19 07/15/19 00:23 02:25 03:51 WBC 11.3 H 11.0 H Hgb 8.9 L 9.1 L Phosphorus 9.2 H* 07/15/19 07/15/19 07/16/19 03:51 14:50 04:22 WBC Hgb Phosphorus 9.3 H* 9.1 H* 10.2 H* 07/17/19 07/18/19 07/19/19 04:13 06:50 05:25 WBC Hgb Phosphorus 6.4 H 5.1 H 5.5 H Hospitalist ROS - Medication Medications: Active Medications Generic Name Dose Route Start Last Admin Trade Name Freq PRN Reason Stop Dose Admin Acetaminophen 650 mg 07/15/19 11:43 07/16/19 12:39 Tylenol PO 650 mg Q4H PRN Administration Headache/Fever/Mild Pain (1-3) Calcitriol 0.25 mcg 07/16/19 09:00 07/19/19 08:10 Rocaltrol PO 0.25 mcg DAILY [facility] Administration Calcium/Vitamin D 1 tab 07/18/19 09:00 07/19/19 08:11 Caltrate 600 + Vit D PO 1 tab DAILY [facility] Administration Cinacalcet 30 mg 07/16/19 08:00 07/19/19 08:11 Sensipar PO 30 mg QAM-WM [facility] Administration Clonidine 0.1 mg 07/15/19 16:50 07/17/19 17:51 Catapres PO 0.1 mg Q4H PRN Administration SBP Greater Than 180 Famotidine 20 mg 07/16/19 09:00 07/19/19 08:11 Pepcid PO 20 mg DAILY [facility] Administration Furosemide 80 mg 07/18/19 07:30 07/19/19 08:13 Lasix PO 80 mg DAILY-AC [facility] Administration Heparin Sodium (Porcine) 5,000 units 07/15/19 21:00 07/19/19 08:11 Heparin SC Not Given BID [facility] Hydralazine HCl 10 mg 07/15/19 16:50 07/17/19 16:58 Apresoline SLOW IVP 10 mg Q4H PRN Administration SBP Greater Than 180 Insulin Human Lispro 0 units 07/15/19 02:52 07/19/19 17:14 Humalog SC 5 unit .MILD SLIDING SCALE PRN Administration Mild Correctional Scale Insulin Human Lispro 0 units 07/15/19 02:52 07/17/19 21:45 Humalog SC 3 unit .BEDTIME SLIDING SC PRN Administration Bedtime Correctional Scale Lisinopril 20 mg 07/19/19 09:00 07/19/19 09:00 Zestril PO Not Given BID [facility] Nifedipine 60 mg 07/17/19 21:00 07/19/19 08:11 Procardia Xl PO 60 mg BID [facility] Administration Senna/Docusate Sodium 2 tab 07/15/19 21:00 07/19/19 08:12 Senokot S PO Not Given BID [facility] Sevelamer Carbonate 1,600 mg 07/16/19 08:00 07/19/19 17:15 Renvela PO 1,600 mg TID-WM [facility] Administration - Exam General Appearance: NAD, awake alert Eye: PERRL, anicteric sclera ENT: normocephalic atraumatic, no oropharyngeal lesions Neck: supple, symmetric, no JVD, no thyromegaly Heart: RRR, no gallops, no rubs, normal peripheral pulses Respiratory: CTAB, no wheezes, no rales, no ronchi Gastrointestinal: soft, non-tender, non-distended, normal bowel sounds, no palpable masses Extremities: no cyanosis, 1+ LE edema Skin: normal turgor, no lesions Neurological: cranial nerve grossly intact, no new deficit Musculoskeletal: normal tone, generalized weakness Psychiatric: normal affect, A&O x 3 Hosp A/P (1) ESRD (end stage renal disease) on dialysis Code(s): N18.6 - END STAGE RENAL DISEASE; Z99.2 - DEPENDENCE ON RENAL DIALYSIS Status: Acute Plan: Plan for outpt HD, continue HD per Renal service, charitable outpt HD (2) Anemia in CKD (chronic kidney disease) Code(s): N18.9 - CHRONIC KIDNEY DISEASE, UNSPECIFIED; D63.1 - ANEMIA IN CHRONIC KIDNEY DISEASE Status: Chronic Plan: Continue serial H/H monitoring (3) Diabetes mellitus Code(s): E11.9 - TYPE 2 DIABETES MELLITUS WITHOUT COMPLICATIONS Status: Chronic Plan: ISS, ADA (4) Hypertension Code(s): I10 - ESSENTIAL (PRIMARY) HYPERTENSION Status: Chronic Qualifiers: Hypertension type: essential hypertension Qualified Code(s): I10 - Essential (primary) hypertension Plan: Labile, continue current BP regimen and titrate to clinical response - Plan PT/OT, social work msw, out of bed/ambulate Stable currently HD per Renal service Continue Lisinopril/Nifedipine CM for outpt coordination for charitable HD AM lab: BMP
[2019-07-19] MEDS: Carvedilol 3.125 MG TAB PO SCH (20:06)
[2019-07-20 05:19] LABS: Albumin 2.4 g/dL (3.4-4.8); Anion Gap 11 mmol/L (10-20); BUN (Urea Nitrogen) 23 mg/dL (9.8-20.1); Calc. Creatinine Clearance 15 mL/min (70-130); Calcium 7.7 mg/dL (7.8-10.44); Carbon Dioxide 29 mmol/L (23-31); Chloride 99 mmol/L (98-107); Estimated GFR-MDRD 10; Glucose 202 mg/dL (80-115); Phosphorus 4.1 mg/dL (2.3-4.7); Potassium 3.7 mmol/L (3.5-5.1); Sodium 135 mmol/L (136-145)
[2019-07-20] MEDS: Carvedilol 3.125 MG TAB PO SCH (05:26)
[2019-07-20] MEDS: HumaLOG 300 UNITS/3 ML VIAL SC PRN ×3 (05:30→21:08)
[2019-07-20] MEDS: Furosemide 80 MG TAB PO SCH ×2 (06:17→14:38)
[2019-07-20] MEDS: NIFEdipine XL 60 MG TAB PO SCH ×2 (08:13→21:03)
[2019-07-20] MEDS: Lisinopril 20 MG TAB PO SCH ×2 (08:13→21:05)
[2019-07-20] MEDS: Calcitriol 0.25 MCG CAP PO SCH (08:14)
[2019-07-20] MEDS: Cinacalcet HCl 30 MG TAB PO SCH (08:14)
[2019-07-20] MEDS: Sevelamer Carbonate 800 MG TAB PO SCH ×3 (08:14→17:25)
[2019-07-20] MEDS: Heparin 5,000 UNITS/ML VIAL SC SCH ×2 (08:15→21:05)
[2019-07-20] MEDS: Famotidine 20 MG TAB PO SCH (08:15)
[2019-07-20] MEDS: Calcium Carbonate + Vit D 1 TAB PO SCH (08:15)
[2019-07-20] MEDS: Senokot S 8.6-50 MG TAB PO SCH ×2 (08:16→21:04)
[2019-07-20] MEDS ORDERED: Epoetin (ESRD) 20,000 UNITS/ML SC SCH (16:45)
--- NOTE | 2019-07-20 17:12 | PRG ---
DATE OF SERVICE: 07/20/2019 SUBJECTIVE: Ms. Lui is a 63-year-old female, currently on hemodialysis due to ESRD. She is tolerating said treatment. This afternoon, she is scheduled for an AV fistula placement. No other complaints today. Currently, no chest pain or shortness of breath. OBJECTIVE: VITAL SIGNS: Blood pressure is 173/86, heart rate 89, respiratory rate 15, temperature 98, and pulse ox 98%. GENERAL: The patient is awake, alert, and comfortable, not in distress. SKIN: Adequate turgor. HEENT: Slightly pale conjunctivae. Anicteric sclerae. NECK: No neck mass. No carotid bruits. No JVD. CHEST: No deformities. LUNGS: Clear breath sounds. HEART: Normal sinus rhythm. No murmur. No gallops. No rubs. ABDOMEN: Globular, soft, and nontender. No masses. EXTREMITIES: No edema. No deformities. MEDICATIONS: Medications of July 20, 2019 were reviewed. LABORATORY DATA: Laboratories of July 16, 2019; white count 7.4, hemoglobin 8. Sodium 135, potassium 3.7, chloride 99, carbon dioxide 29, BUN 23, creatinine 4.6, GFR 10 mL/minute, glucose 202, phosphorus 4.1, and albumin 2.4. ASSESSMENT AND PLAN: 1. Chronic renal failure/end-stage renal disease-currently on dialysis regimen. We will continue Friday, Friday, and Friday dialysis. Again, fluid removal only as tolerated. 2. Anemia, start weekly Epogen and iron supplementation. 3. Congestive heart failure, clinically much improved with the dialysis. I agree with current management. Job ID: [id number]
[2019-07-20] MEDS: Ferrous Sulfate 325 MG TAB PO SCH (17:25)
--- NOTE | 2019-07-20 17:31 | PRG ---
DATE OF SERVICE: 07/20/2019 Shante Lui scheduled for a fistula today; however, the OR is overwhelmed with add-ons and her surgery will be much later this evening, thus it was postponed for Friday. This was communicated to her nurse to inform the patient or family. Job ID: [id number]
--- NOTE | 2019-07-20 19:30 | PDOC.HOSPP ---
- Subjective Encounter Date: 07/20/19 Encounter Time: 17:20 Subjective: f/u for ESRD initiating HD. Plan for AV fistula today and currently NPO. - Objective Vital Signs & Weight: Vital Signs (12 hours) Temp Pulse Resp BP BP BP Pulse Ox 07/20/19 19:19 98.0 F 96 16 179/85 H 97 07/20/19 15:22 98.0 F 89 15 173/86 H 98 07/20/19 12:00 166/91 H 07/20/19 11:00 98.3 F 88 20 172/81 H 16 L 07/20/19 08:17 96 07/20/19 08:13 82 170/81 H 07/20/19 08:12 98.4 F 82 18 170/81 H 96 Weight Weight 157 lb 12.8 oz I&O: 07/19/19 07/20/19 07/21/19 06:59 06:59 06:59 Intake Total 720 840 Output Total 3400 Balance 720 -2560 Result Diagrams: 07/16/19 04:22 07/20/19 04:30 Additional Labs: Accuchecks 07/20/19 07/20/19 07/20/19 16:33 11:56 04:29 POC Glucose 204 H 205 H 224 H 07/19/19 19:49 POC Glucose 280 H Microbiology 07/15/19 Unknown Stool Stool Occult Blood (SEJAL) - Final Laboratory Tests 07/15/19 07/15/19 07/15/19 00:23 02:25 03:51 WBC 11.3 H 11.0 H Hgb 8.9 L 9.1 L Phosphorus 9.2 H* 07/15/19 07/15/19 07/16/19 03:51 14:50 04:22 WBC Hgb Phosphorus 9.3 H* 9.1 H* 10.2 H* 07/17/19 07/18/19 07/19/19 04:13 06:50 05:25 WBC Hgb Phosphorus 6.4 H 5.1 H 5.5 H Hospitalist ROS - Medication Medications: Active Medications Generic Name Dose Route Start Last Admin Trade Name Freq PRN Reason Stop Dose Admin Acetaminophen 650 mg 07/15/19 11:43 07/16/19 12:39 Tylenol PO 650 mg Q4H PRN Administration Headache/Fever/Mild Pain (1-3) Calcitriol 0.25 mcg 07/16/19 09:00 07/20/19 08:14 Rocaltrol PO Not Given DAILY [facility] Calcium/Vitamin D 1 tab 07/18/19 09:00 07/20/19 08:15 Caltrate 600 + Vit D PO Not Given DAILY [facility] Cinacalcet 30 mg 07/16/19 08:00 07/20/19 08:14 Sensipar PO Not Given QAM[facility] Clonidine 0.1 mg 07/15/19 16:50 07/17/19 17:51 Catapres PO 0.1 mg Q4H PRN Administration SBP Greater Than 180 Famotidine 20 mg 07/16/19 09:00 07/20/19 08:15 Pepcid PO 20 mg DAILY [facility] Administration Ferrous Sulfate 325 mg 07/20/19 17:00 07/20/19 17:25 Feosol PO 325 mg BID[facility] Administration Furosemide 80 mg 07/20/19 06:00 07/20/19 14:38 Lasix PO Not Given 0600,1400 [facility] Heparin Sodium (Porcine) 5,000 units 07/15/19 21:00 07/20/19 08:15 Heparin SC Not Given BID [facility] Hydralazine HCl 10 mg 07/15/19 16:50 07/17/19 16:58 Apresoline SLOW IVP 10 mg Q4H PRN Administration SBP Greater Than 180 Insulin Human Lispro 0 units 07/15/19 02:52 07/20/19 17:24 Humalog SC 3 unit .MILD SLIDING SCALE PRN Administration Mild Correctional Scale Insulin Human Lispro 0 units 07/15/19 02:52 07/19/19 20:12 Humalog SC 3 unit .BEDTIME SLIDING SC PRN Administration Bedtime Correctional Scale Lisinopril 20 mg 07/19/19 09:00 07/20/19 08:13 Zestril PO 20 mg BID [facility] Administration Nifedipine 60 mg 07/17/19 21:00 07/20/19 08:13 Procardia Xl PO 60 mg BID [facility] Administration Senna/Docusate Sodium 2 tab 07/15/19 21:00 07/20/19 08:16 Senokot S PO Not Given BID [facility] Sevelamer Carbonate 1,600 mg 07/16/19 08:00 07/20/19 17:25 Renvela PO 1,600 mg TID-WM [facility] Administration - Exam General Appearance: NAD, awake alert General - other findings: smiling, laughing Eye: PERRL, anicteric sclera ENT: normocephalic atraumatic, no oropharyngeal lesions Neck: supple, symmetric, no JVD, no thyromegaly Heart: RRR, no murmur, no gallops, no rubs, normal peripheral pulses Respiratory: CTAB, no wheezes, no rales, no ronchi Gastrointestinal: soft, non-tender, non-distended, normal bowel sounds Extremities: no cyanosis, no clubbing Skin: normal turgor, no lesions Neurological: cranial nerve grossly intact, no new deficit Musculoskeletal: normal tone, normal strength Psychiatric: normal affect, A&O x 3 Hosp A/P (1) ESRD (end stage renal disease) on dialysis Code(s): N18.6 - END STAGE RENAL DISEASE; Z99.2 - DEPENDENCE ON RENAL DIALYSIS Status: Acute Plan: Continue HD per Renal service, coordination for oupt HD services (2) Anemia in CKD (chronic kidney disease) Code(s): N18.9 - CHRONIC KIDNEY DISEASE, UNSPECIFIED; D63.1 - ANEMIA IN CHRONIC KIDNEY DISEASE Status: Chronic Plan: Continue Epo, serial H/H (3) Diabetes mellitus Code(s): E11.9 - TYPE 2 DIABETES MELLITUS WITHOUT COMPLICATIONS Status: Chronic (4) Hypertension Code(s): I10 - ESSENTIAL (PRIMARY) HYPERTENSION Status: Chronic Qualifiers: Hypertension type: essential hypertension Qualified Code(s): I10 - Essential (primary) hypertension - Plan plan discussed w/ family, nephrology social worker, out of bed/ambulate Stable currently HD per Renal service Continue Lisinopril/Nifedipine CM for outpt coordination for [facility] HD AV fistula rescheduled for 07/21/19 AM lab: BMP, CBC
[2019-07-20] MEDS: Carvedilol 6.25 MG TAB PO SCH (21:05)
[2019-07-20] MEDS: EPOETIN ALFA-EPBX (ESRD) 4,000 UNIT/ML VIAL SC SCH (21:08)
[2019-07-21] MEDS: Carvedilol 6.25 MG TAB PO SCH ×2 (05:51→20:59)
[2019-07-21] MEDS: Furosemide 80 MG TAB PO SCH ×2 (05:51→14:03)
[2019-07-21 06:19] LABS: Hemoglobin 8.9 g/dL (12.0-16.0); Mean Corpuscular HGB CONC 33.1 g/dL (32.0-36.0); Mean Corpuscular Hemoglobin 30.2 pg (27.0-31.0); Mean Corpuscular Volume 91.4 fL (78.0-98.0); Mean Platelet Volume 8.7 fL (7.4-10.4); Platelet Count 270 thou/uL (130-400); RBC Distribution Width 12.5 % (11.5-14.5); Red Blood Cell (RBC) Count 2.96 mill/uL (4.20-5.40); White Blood Cell (WBC) Count 10.9 thou/uL (4.8-10.8)
[2019-07-21 06:40] LABS: Albumin 2.5 g/dL (3.4-4.8); Anion Gap 14 mmol/L (10-20); BUN (Urea Nitrogen) 39 mg/dL (9.8-20.1); BUN/Creatinine Ratio 6.58; Calc. Creatinine Clearance 11 mL/min (70-130); Calcium 8.1 mg/dL (7.8-10.44); Carbon Dioxide 26 mmol/L (23-31); Chloride 101 mmol/L (98-107); Estimated GFR-MDRD 7; Glucose 205 mg/dL (80-115); Phosphorus 5.5 mg/dL (2.3-4.7); Sodium 137 mmol/L (136-145)
[2019-07-21] MEDS: Cinacalcet HCl 30 MG TAB PO SCH (08:17)
[2019-07-21] MEDS: Ferrous Sulfate 325 MG TAB PO SCH ×2 (08:17→16:09)
[2019-07-21] MEDS: Sevelamer Carbonate 800 MG TAB PO SCH ×3 (08:17→16:09)
[2019-07-21] MEDS: Calcitriol 0.25 MCG CAP PO SCH (08:17)
[2019-07-21] MEDS: Heparin 5,000 UNITS/ML VIAL SC SCH ×2 (08:18→20:58)
[2019-07-21] MEDS: Calcium Carbonate + Vit D 1 TAB PO SCH (08:18)
[2019-07-21] MEDS: Famotidine 20 MG TAB PO SCH (08:18)
[2019-07-21] MEDS: Senokot S 8.6-50 MG TAB PO SCH ×2 (08:18→20:59)
[2019-07-21] MEDS: NIFEdipine XL 60 MG TAB PO SCH ×2 (08:26→20:59)
[2019-07-21] MEDS: Lisinopril 20 MG TAB PO SCH ×2 (08:27→21:00)
[2019-07-21] MEDS ORDERED: Heparin 10,000 UNITS/ 10 ML VIAL ONE (09:19)
[2019-07-21] MEDS ORDERED: Heparin 5,000 UNITS/ML VIAL ONE (10:54)
[2019-07-21] MEDS ORDERED: Lidocaine 1% w/Epinephrine 1:100K 20 ML VIAL ONE (10:54)
[2019-07-21] MEDS ORDERED: Bupivacaine PF 0.5% 30 ML VIAL ONE (10:54)
[2019-07-21] MEDS ORDERED: Lidocaine 1% (PF) 30 ML VIAL ONE (10:57)
[2019-07-21] MEDS ORDERED: PROPOFOL 200 MG/20 ML VIAL ONE (11:09)
[2019-07-21] MEDS ORDERED: Bupivacaine HCl 0.5%/Epinephrine 1:200,000/PF 30 ml Vial ONE (11:10)
[2019-07-21] MEDS ORDERED: Protamine Sulfate 50 MG/5 ML VIAL ONE (11:51)
[2019-07-21] MEDS ORDERED: Promethazine HCl 25 MG/ML VIAL IM PRN (12:51)
[2019-07-21] MEDS ORDERED: Promethazine HCl 25 MG/ML VIAL SLOW IVP PRN (12:51)
[2019-07-21] MEDS ORDERED: Ondansetron HCl/PF 4 MG/2 ML Vial IVP PRN (12:51)
--- NOTE | 2019-07-21 16:33 | OP ---
DATE OF PROCEDURE: 07/21/2019 PREOPERATIVE DIAGNOSIS: End-stage renal disease, initiated dialysis this hospitalization. POSTOPERATIVE DIAGNOSIS: End-stage renal disease, initiated dialysis this hospitalization. PROCEDURE PERFORMED: Right arm primary fistula, perforating branch antecubital vein to proximal radial artery outflow primary cephalic vein calibrated to 4 mm coronary dilator, secondary outflow probably insignificant basilic vein. ANESTHESIA: Regional, TIVA. DESCRIPTION OF PROCEDURE: The patient was taken to the operating room, where under regional anesthesia, right upper extremity was prepared with ChloraPrep and draped in routine fashion. Proximal volar forearm incision was made longitudinally below the antecubital fossa, carried down through skin and subcutaneous tissue, cephalic vein, proximal radial artery, and perforating branch antecubital vein dissected free. Perforating branch antecubital vein dissected free and branches were divided between clips and 4-0 silk ties. It was spatulated over branch point, and the patient given 6000 units of heparin intravenously. It was then interrogated with coronary dilators, passing coronary dilators from a 2 mm to 4 mm coronary dilator out cephalic vein outflow. The patient had a deeper communication of the cephalic vein that fed directly through the cephalic vein and proximal to the basilic vein making the primary outflow of the cephalic vein. Proximal radial artery was clamped proximally and distally, and longitudinal arteriotomy was made for 2.5 cm anastomosis between perforating branch antecubital vein and the proximal radial artery using continuous suture of 6-0 Prolene. Vascular clamps released. There was good Doppler signal in the cephalic vein outflow. Hemostasis was obtained with 6-0 Prolene. The patient was given protamine 25 mg. Good hemostasis noted. Subcutaneous tissue was approximated with 3-0 Monocryl, skin with subdermal 4-0 Monocryl, and [place] glue applied. Job ID: [id number]
--- NOTE | 2019-07-21 18:19 | PDOC.HOSPP ---
- Subjective Encounter Date: 07/21/19 Encounter Time: 14:35 Subjective: f/u for ESRD on HD and AV fistula placmenent today. - Objective Vital Signs & Weight: Vital Signs (12 hours) Temp Pulse Resp BP BP Pulse Ox 07/21/19 14:00 84 164/81 H 94 L 07/21/19 13:24 98.2 F 88 16 123/70 91 L 07/21/19 09:35 98.4 F 99 14 173/80 H 99 07/21/19 08:27 205/89 H 07/21/19 08:26 82 205/89 H 07/21/19 07:45 98.2 F 82 14 205/89 H 97 Weight Weight 155 lb 14.4 oz I&O: 07/20/19 07/21/19 07/22/19 06:59 06:59 06:59 Intake Total 840 Output Total 3400 Balance -2560 Result Diagrams: 07/21/19 05:55 07/21/19 05:55 Additional Labs: Accuchecks 07/21/19 07/20/19 04:26 19:24 POC Glucose 178 H 351 H Microbiology 07/15/19 Unknown Stool Stool Occult Blood (SEJAL) - Final Laboratory Tests 07/15/19 07/15/19 07/15/19 00:23 02:25 03:51 WBC 11.3 H 11.0 H Hgb 8.9 L 9.1 L Phosphorus 9.2 H* 07/15/19 07/15/19 07/16/19 03:51 14:50 04:22 WBC Hgb Phosphorus 9.3 H* 9.1 H* 10.2 H* 07/17/19 07/18/19 07/19/19 04:13 06:50 05:25 WBC Hgb Phosphorus 6.4 H 5.1 H 5.5 H Hospitalist ROS - Medication Medications: Active Medications Generic Name Dose Route Start Last Admin Trade Name Freq PRN Reason Stop Dose Admin Calcitriol 0.25 mcg 07/16/19 09:00 07/21/19 08:17 Rocaltrol PO Not Given DAILY [facility] Calcium/Vitamin D 1 tab 07/18/19 09:00 07/21/19 08:18 Caltrate 600 + Vit D PO Not Given DAILY [facility] Carvedilol 6.25 mg 07/20/19 21:00 07/21/19 05:51 Coreg PO 6.25 mg BID [facility] Administration Cinacalcet 30 mg 07/16/19 08:00 07/21/19 08:17 Sensipar PO Not Given QAM-WM [facility] Clonidine 0.1 mg 07/15/19 16:50 07/17/19 17:51 Catapres PO 0.1 mg Q4H PRN Administration SBP Greater Than 180 Epoetin Ky-epbx 7,500 unit 07/20/19 17:00 07/20/19 21:08 Retacrit SC 7,500 unit Q7D [facility] Administration Famotidine 20 mg 07/16/19 09:00 07/21/19 08:18 Pepcid PO Not Given DAILY [facility] Ferrous Sulfate 325 mg 07/20/19 17:00 07/21/19 16:09 Feosol PO Not Given BID-WM [facility] Furosemide 80 mg 07/20/19 06:00 07/21/19 14:03 Lasix PO Not Given 0600,1400 [facility] Heparin Sodium (Porcine) 5,000 units 07/15/19 21:00 07/21/19 08:18 Heparin SC Not Given BID [facility] Hydralazine HCl 10 mg 07/15/19 16:50 07/17/19 16:58 Apresoline SLOW IVP 10 mg Q4H PRN Administration SBP Greater Than 180 Insulin Human Lispro 0 units 07/15/19 02:52 07/20/19 17:24 Humalog SC 3 unit .MILD SLIDING SCALE PRN Administration Mild Correctional Scale Insulin Human Lispro 0 units 07/15/19 02:52 07/20/19 21:08 Humalog SC 5 unit .BEDTIME SLIDING SC PRN Administration Bedtime Correctional Scale Lisinopril 20 mg 07/19/19 09:00 07/21/19 08:27 Zestril PO 20 mg BID [facility] Administration Nifedipine 60 mg 07/17/19 21:00 07/21/19 08:26 Procardia Xl PO 60 mg BID [facility] Administration Senna/Docusate Sodium 2 tab 07/15/19 21:00 07/21/19 08:18 Senokot S PO Not Given BID [facility] Sevelamer Carbonate 1,600 mg 07/16/19 08:00 07/21/19 16:09 Renvela PO Not Given TID-WM [facility] - Exam General Appearance: NAD, awake alert Eye: PERRL, anicteric sclera ENT: normocephalic atraumatic, no oropharyngeal lesions Neck: supple, symmetric, no JVD, no thyromegaly Heart: RRR, no gallops, no rubs, normal peripheral pulses Respiratory: CTAB, no wheezes, no rales, no ronchi Gastrointestinal: soft, non-tender, non-distended, normal bowel sounds Extremities: no cyanosis, no clubbing, no edema Skin: normal turgor, no lesions Neurological: cranial nerve grossly intact, no new deficit Musculoskeletal: normal tone, normal strength Psychiatric: normal affect, A&O x 3 Hosp A/P (1) ESRD (end stage renal disease) on dialysis Code(s): N18.6 - END STAGE RENAL DISEASE; Z99.2 - DEPENDENCE ON RENAL DIALYSIS Status: Acute Plan: Continue HD per Renal service, AV fistula placed today (2) Anemia in CKD (chronic kidney disease) Code(s): N18.9 - CHRONIC KIDNEY DISEASE, UNSPECIFIED; D63.1 - ANEMIA IN CHRONIC KIDNEY DISEASE Status: Chronic Plan: Epo, serial H/H (3) Diabetes mellitus Code(s): E11.9 - TYPE 2 DIABETES MELLITUS WITHOUT COMPLICATIONS Status: Chronic (4) Hypertension Code(s): I10 - ESSENTIAL (PRIMARY) HYPERTENSION Status: Chronic Qualifiers: Hypertension type: essential hypertension Qualified Code(s): I10 - Essential (primary) hypertension - Plan plan discussed w/ family, out of bed/ambulate, DVT proph w/SCDs Stable currently HD per Renal service Continue Lisinopril/Nifedipine CM for outpt coordination for [facility] HD AV fistula completed today AM lab: BMP
[2019-07-21] MEDS: HumaLOG 300 UNITS/3 ML VIAL SC PRN (20:58)
[2019-07-22] MEDS: Furosemide 80 MG TAB PO SCH ×2 (05:41→12:56)
[2019-07-22] MEDS: Acetaminophen 500 MG TAB PO PRN (05:41)
[2019-07-22] MEDS: HumaLOG 300 UNITS/3 ML VIAL SC PRN ×4 (05:42→20:09)
[2019-07-22 06:16] LABS: Albumin 2.5 g/dL (3.4-4.8); Anion Gap 12 mmol/L (10-20); BUN (Urea Nitrogen) 20 mg/dL (9.8-20.1); BUN/Creatinine Ratio 5.22; Calc. Creatinine Clearance 17 mL/min (70-130); Calcium 7.9 mg/dL (7.8-10.44); Carbon Dioxide 29 mmol/L (23-31); Chloride 101 mmol/L (98-107); Estimated GFR-MDRD 12; Glucose 199 mg/dL (80-115); Phosphorus 4.5 mg/dL (2.3-4.7); Potassium 3.9 mmol/L (3.5-5.1); Sodium 138 mmol/L (136-145)
[2019-07-22] MEDS: Sevelamer Carbonate 800 MG TAB PO SCH ×3 (07:43→17:15)
[2019-07-22] MEDS: Famotidine 20 MG TAB PO SCH (07:43)
[2019-07-22] MEDS: Cinacalcet HCl 30 MG TAB PO SCH (07:43)
[2019-07-22] MEDS: Calcium Carbonate + Vit D 1 TAB PO SCH (07:43)
[2019-07-22] MEDS: Calcitriol 0.25 MCG CAP PO SCH (07:44)
[2019-07-22] MEDS: NIFEdipine XL 60 MG TAB PO SCH ×2 (07:44→20:08)
[2019-07-22] MEDS: Lisinopril 20 MG TAB PO SCH ×2 (07:44→20:08)
[2019-07-22] MEDS: Ferrous Sulfate 325 MG TAB PO SCH ×2 (07:44→17:15)
[2019-07-22] MEDS: Carvedilol 6.25 MG TAB PO SCH ×2 (07:44→20:09)
[2019-07-22] MEDS: Heparin 5,000 UNITS/ML VIAL SC SCH ×2 (07:45→20:09)
[2019-07-22] MEDS: Senokot S 8.6-50 MG TAB PO SCH ×2 (07:45→20:08)
[2019-07-22] MEDS ORDERED: Ergocalciferol 1.25 MG(50,000 UNITS) CAP PO SCH (09:00)
--- NOTE | 2019-07-22 19:46 | PRG ---
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 She is status post 07/21/2019, right arm primary fistula, perforating branch antecubital vein to proximal radial artery outflow primary cephalic vein, calibrated to 4 mm coronary dilator basilic vein. She has good thrill and bruit over her right upper arm fistula. Surgical wounds well healed. The right hand is functioning well. At this point, I will see her as needed. She should follow up in my office in the next 3 to 4 weeks. She should exercise her arm daily and use it unrestricted without any weight lifting restrictions. Central line can be removed prior to discharge. Job ID: [id number]
--- NOTE | 2019-07-22 21:03 | PDOC.HOSPP ---
- Subjective Encounter Date: 07/22/19 Encounter Time: 15:00 Subjective: f/u for ESRD on current HD. S/p AV fistula placement. Awaiting outpatient HD coordination. - Objective Vital Signs & Weight: Vital Signs (12 hours) Temp Pulse Resp BP BP BP Pulse Ox 07/22/19 20:09 176/82 H 07/22/19 20:08 86 176/82 H 07/22/19 19:45 98.3 F 86 16 176/82 H 100 07/22/19 16:18 98.0 F 79 16 148/83 H 99 07/22/19 11:47 97.9 F 75 16 112/71 98 Weight Weight 156 lb 3.2 oz I&O: 07/21/19 07/22/19 07/23/19 06:59 06:59 06:59 Intake Total 800 Balance 800 Result Diagrams: 07/21/19 05:55 07/22/19 05:48 Additional Labs: Accuchecks 07/22/19 07/22/19 07/22/19 16:21 11:50 04:20 POC Glucose 263 H 284 H 201 H Microbiology 07/15/19 Unknown Stool Stool Occult Blood (SEJAL) - Final Laboratory Tests 07/15/19 07/15/19 07/15/19 00:23 02:25 03:51 WBC 11.3 H 11.0 H Hgb 8.9 L 9.1 L Phosphorus 9.2 H* 07/15/19 07/15/19 07/16/19 03:51 14:50 04:22 WBC Hgb Phosphorus 9.3 H* 9.1 H* 10.2 H* 07/17/19 07/18/19 07/19/19 04:13 06:50 05:25 WBC Hgb Phosphorus 6.4 H 5.1 H 5.5 H Hospitalist ROS - Medication Medications: Active Medications Generic Name Dose Route Start Last Admin Trade Name Freq PRN Reason Stop Dose Admin Acetaminophen 1,000 mg 07/16/19 11:30 07/22/19 05:41 Tylenol PO 1,000 mg Q6H PRN Administration Moderate Pain (4-6) Calcitriol 0.25 mcg 07/16/19 09:00 07/22/19 07:44 Rocaltrol PO 0.25 mcg DAILY [facility] Administration Calcium/Vitamin D 1 tab 07/18/19 09:00 07/22/19 07:43 Caltrate 600 + Vit D PO 1 tab DAILY [facility] Administration Carvedilol 6.25 mg 07/20/19 21:00 07/22/19 20:09 Coreg PO 6.25 mg BID [facility] Administration Cinacalcet 30 mg 07/16/19 08:00 07/22/19 07:43 Sensipar PO 30 mg QAM-[facility] Administration Clonidine 0.1 mg 07/15/19 16:50 07/17/19 17:51 Catapres PO 0.1 mg Q4H PRN Administration SBP Greater Than 180 Epoetin Ky-epbx 7,500 unit 07/20/19 17:00 07/20/19 21:08 Retacrit SC 7,500 unit Q7D [facility] Administration Ergocalciferol 1.25 mg 07/22/19 09:00 07/22/19 11:00 Drisdol PO 1.25 mg Q7DAYS [facility] Administration Famotidine 20 mg 07/16/19 09:00 07/22/19 07:43 Pepcid PO 20 mg DAILY [facility] Administration Ferrous Sulfate 325 mg 07/20/19 17:00 07/22/19 17:15 Feosol PO 325 mg BID-WM [facility] Administration Furosemide 80 mg 07/20/19 06:00 07/22/19 12:56 Lasix PO 80 mg 0600,1400 [facility] Administration Heparin Sodium (Porcine) 5,000 units 07/15/19 21:00 07/22/19 20:09 Heparin SC 5,000 units BID [facility] Administration Hydralazine HCl 10 mg 07/15/19 16:50 07/17/19 16:58 Apresoline SLOW IVP 10 mg Q4H PRN Administration SBP Greater Than 180 Insulin Human Lispro 0 units 07/15/19 02:52 07/22/19 17:15 Humalog SC 4 unit .MILD SLIDING SCALE PRN Administration Mild Correctional Scale Insulin Human Lispro 0 units 07/15/19 02:52 07/22/19 20:09 Humalog SC 2 unit .BEDTIME SLIDING SC PRN Administration Bedtime Correctional Scale Lisinopril 20 mg 07/19/19 09:00 07/22/19 20:08 Zestril PO 20 mg BID [facility] Administration Nifedipine 60 mg 07/17/19 21:00 07/22/19 20:08 Procardia Xl PO 60 mg BID [facility] Administration Senna/Docusate Sodium 2 tab 07/15/19 21:00 07/22/19 20:08 Senokot S PO 2 tab BID [facility] Administration Sevelamer Carbonate 1,600 mg 07/16/19 08:00 07/22/19 17:15 Renvela PO 1,600 mg TID-WM [facility] Administration - Exam General Appearance: NAD, awake alert Eye: PERRL, anicteric sclera ENT: normocephalic atraumatic, no oropharyngeal lesions Neck: supple, symmetric, no JVD, no thyromegaly Heart: RRR, no murmur, no gallops, no rubs, normal peripheral pulses Respiratory: CTAB, no wheezes, no rales, no ronchi Gastrointestinal: soft, non-tender, non-distended, normal bowel sounds Extremities: no cyanosis, no clubbing Skin: normal turgor, no lesions Neurological: cranial nerve grossly intact, no new deficit Musculoskeletal: normal tone, generalized weakness Psychiatric: normal affect, A&O x 3 Hosp A/P (1) ESRD (end stage renal disease) on dialysis Code(s): N18.6 - END STAGE RENAL DISEASE; Z99.2 - DEPENDENCE ON RENAL DIALYSIS Status: Acute Plan: Continue HD per Renal service, CM for coordination of outpatient options (2) Anemia in CKD (chronic kidney disease) Code(s): N18.9 - CHRONIC KIDNEY DISEASE, UNSPECIFIED; D63.1 - ANEMIA IN CHRONIC KIDNEY DISEASE Status: Chronic Plan: Continue Epo/FeSO4 (3) Diabetes mellitus Code(s): E11.9 - TYPE 2 DIABETES MELLITUS WITHOUT COMPLICATIONS Status: Chronic (4) Hypertension Code(s): I10 - ESSENTIAL (PRIMARY) HYPERTENSION Status: Chronic Qualifiers: Hypertension type: essential hypertension Qualified Code(s): I10 - Essential (primary) hypertension Plan: Labile, continue current BP regimen, titrate to optimal response - Plan plan discussed w/ family, social media editor, out of bed/ambulate, DVT proph w/SCDs Stable currently HD per Renal service Continue Lisinopril/Nifedipine CM for outpt coordination for [facility] HD AV fistula completed AM lab: BMP
--- NOTE | 2019-07-23 06:57 | PRG ---
DATE OF SERVICE: 07/23/2019 SERVICE: Nephrology. SUBJECTIVE: A 63-year-old lady seen in followup for end-stage renal disease management. The patient was admitted due to worsening shortness of breath and chest pain. Found to have end-stage renal disease as well as anasarca and nephrotic-range proteinuria. She was initiated on hemodialysis. No new problem. The patient denied chest pain, shortness of breath, or edema. Oral intake has improved. OBJECTIVE: VITAL SIGNS: Temperature 98.4, pulse 82, respiratory rate 16, SpO2 of 97% on room air, and blood pressure is 120/67. GENERAL: Middle-age female, in no obvious distress. Afebrile. Anicteric. Acyanotic. HEENT: Normocephalic, atraumatic. Oral mucosa is moist. CARDIOVASCULAR: Regular rhythm and rate with normal heart sounds 1 and 2. RESPIRATORY: Fair air entry bilaterally with no obvious crackle or rhonchi or use of accessory muscles. GASTROINTESTINAL: Obese, soft, nontender, and nondistended with normal bowel sounds. EXTREMITIES: Grossly normal looking, atraumatic with no edema or erythema. Distal pulses are palpable. CENTRAL NERVOUS SYSTEM: Conscious, alert, oriented x3 with appropriate mental status. ASSESSMENT: 1. Acute on chronic renal failure, now end-stage renal disease, on hemodialysis. 2. Nephrotic-range proteinuria. 3. Hyperkalemia. 4. Metabolic acidosis: Due to chronic kidney disease, resolved. 5. Anemia in chronic kidney disease. 6. Hypertension: Control is acceptable. 7. Volume overload due to chronic kidney disease. Resolved with hemodialysis and diuretics. 8. Vitamin D deficiency. 9. Secondary hyperparathyroidism. 10. Hyperphosphatemia. DISCUSSION: The patient could not get financial clearance for outpatient hemodialysis due to insurance issues. The patient could not get Medicaid. I had a discussion with the patient and son with Power Plant Operator Apprentice and Case Management in attendance. We discussed all the options including self-pay outpatient hemodialysis. Son is open to exploring that option so that she could continue to get outpatient hemodialysis. Case Management will arrange in sending out referrals to outpatient dialysis unit to set the patient up for outpatient dialysis. However, the patient will be self-pay. If this could be arranged today, the patient can be discharged from Nephrology [id number]. She, however, needs to be on current medications including calcitriol, Renvela, and antihypertensives. The patient also needs to be on Sensipar. We will go ahead and substitute furosemide with torsemide to help with fluid management. If the patient is discharged today, we will follow the patient out in the dialysis unit. Otherwise, we will see the patient in the hospital tomorrow. Job ID: [id number]
--- NOTE | 2019-07-23 07:15 | PRG ---
DATE OF SERVICE: 07/22/2019 SERVICE: Nephrology. SUBJECTIVE: This 63-year-old female is seen in followup for renal failure, now end-stage renal disease, on hemodialysis. Blood pressure and edema have improved. No new problem. OBJECTIVE: VITAL SIGNS: Temperature 97.9, pulse 75, respiratory rate 16, SpO2 of 98% on room air, and blood pressure 112/71. GENERAL: Comfortable female, in no distress. Afebrile. HEENT: Normocephalic and atraumatic. Oral mucosa is moist. CARDIOVASCULAR: Regular rhythm and rate. Normal heart sounds 1 and 2. RESPIRATORY: Good air entry bilaterally. No obvious crackle or rhonchi or use of accessory muscles. GI: Obese, soft, nontender, nondistended with normal bowel sounds. EXTREMITIES: Mild bilateral leg edema noted. Right cubital fossa AV fistula with surgical dressing noted. RAIL SPECIALIST: Conscious, alert, oriented x3 with appropriate mental status. DIAGNOSTIC DATA: Renal function panel today showed sodium of 138, potassium of 3.9, chloride of 101, CO2 of 29, BUN of 20, creatinine of 3.83, glucose of 199, calcium of 7.9, phosphorus of 4.5, and albumin 2.5. ASSESSMENT: 1. Acute on chronic renal failure, now deemed end-stage renal disease, on hemodialysis. Last treatment was yesterday and it was well tolerated. 2. Hypertension: Control is adequate. 3. Secondary hyperparathyroidism. 4. Anemia in chronic kidney disease. 5. Vitamin D deficiency. 6. Diabetes mellitus. 7. Nephrotic range proteinuria. PLAN: 1. We will continue hemodialysis on Friday, Friday, and Friday. 2. We will also continue antihypertensives. 3. casino worker reported the patient was denied for Medicaid. We will discuss further with the patient and relatives about self-pay for continuation of hemodialysis. Once this could be sorted out, the patient can be discharged to continue outpatient hemodialysis. Further treatment to follow depending on hospital course. Job ID: [id number]
[2019-07-23] MEDS: Sevelamer Carbonate 800 MG TAB PO SCH ×3 (10:32→16:40)
[2019-07-23] MEDS: Famotidine 20 MG TAB PO SCH (13:00)
[2019-07-23] MEDS: Lisinopril 20 MG TAB PO SCH ×2 (13:00→21:03)
[2019-07-23] MEDS: Senokot S 8.6-50 MG TAB PO SCH ×2 (13:00→21:08)
[2019-07-23] MEDS: NIFEdipine XL 60 MG TAB PO SCH ×2 (13:00→21:04)
[2019-07-23] MEDS: Calcitriol 0.25 MCG CAP PO SCH (13:00)
[2019-07-23] MEDS: Calcium Carbonate + Vit D 1 TAB PO SCH (13:01)
[2019-07-23] MEDS: Cinacalcet HCl 30 MG TAB PO SCH (13:06)
[2019-07-23] MEDS: Ferrous Sulfate 325 MG TAB PO SCH ×2 (13:06→16:40)
[2019-07-23] MEDS: Torsemide 100 MG TAB PO SCH (13:08)
[2019-07-23] MEDS: Heparin 5,000 UNITS/ML VIAL SC SCH ×2 (13:08→21:07)
[2019-07-23] MEDS: Carvedilol 6.25 MG TAB PO SCH ×2 (13:11→21:07)
--- NOTE | 2019-07-23 15:25 | PDOC.HOSPP ---
- Subjective Encounter Date: 07/23/19 Encounter Time: 15:30 Subjective: f/u for ESRD initiated on HD. Awaiting coordination for outpatient HD but lack of funding complicating process. No new complaints. - Objective Vital Signs & Weight: Vital Signs (12 hours) Temp Pulse Resp BP BP BP Pulse Ox 07/23/19 13:00 119/74 07/23/19 12:59 97.9 F 89 16 119/74 98 07/23/19 07:15 98.2 F 83 16 153/71 H 95 07/23/19 07:14 95 07/23/19 04:00 98.4 F 82 16 120/67 97 Weight Weight 156 lb 3.2 oz I&O: 07/22/19 07/23/19 07/24/19 06:59 06:59 06:59 Intake Total 800 Balance 800 Result Diagrams: 07/21/19 05:55 07/22/19 05:48 Additional Labs: Accuchecks 07/23/19 07/23/19 07/22/19 13:29 04:51 20:00 POC Glucose 157 H 199 H 219 H 07/22/19 16:21 POC Glucose 263 H Microbiology 07/15/19 Unknown Stool Stool Occult Blood (SEJAL) - Final Laboratory Tests 07/15/19 07/15/19 07/15/19 00:23 02:25 03:51 WBC 11.3 H 11.0 H Hgb 8.9 L 9.1 L Phosphorus 9.2 H* 07/15/19 07/15/19 07/16/19 03:51 14:50 04:22 WBC Hgb Phosphorus 9.3 H* 9.1 H* 10.2 H* 07/17/19 07/18/19 07/19/19 04:13 06:50 05:25 WBC Hgb Phosphorus 6.4 H 5.1 H 5.5 H Hospitalist ROS - Medication Medications: Active Medications Generic Name Dose Route Start Last Admin Trade Name Freq PRN Reason Stop Dose Admin Acetaminophen 1,000 mg 07/16/19 11:30 07/22/19 05:41 Tylenol PO 1,000 mg Q6H PRN Administration Moderate Pain (4-6) Calcitriol 0.25 mcg 07/16/19 09:00 07/23/19 13:00 Rocaltrol PO 0.25 mcg DAILY LUISA Administration Calcium/Vitamin D 1 tab 07/18/19 09:00 07/23/19 13:01 Caltrate 600 + Vit D PO 1 tab DAILY LUISA Administration Carvedilol 6.25 mg 07/20/19 21:00 07/23/19 13:11 Coreg PO 6.25 mg BID LUISA Administration Cinacalcet 30 mg 07/16/19 08:00 07/23/19 13:06 Sensipar PO 30 mg QAM-WM LUISA Administration Clonidine 0.1 mg 07/15/19 16:50 07/17/19 17:51 Catapres PO 0.1 mg Q4H PRN Administration SBP Greater Than 180 Epoetin Ky-epbx 7,500 unit 07/20/19 17:00 07/20/19 21:08 Retacrit SC 7,500 unit Q7D LUISA Administration Ergocalciferol 1.25 mg 07/22/19 09:00 07/22/19 11:00 Drisdol PO 1.25 mg Q7DAYS LUISA Administration Famotidine 20 mg 07/16/19 09:00 07/23/19 13:00 Pepcid PO 20 mg DAILY LUISA Administration Ferrous Sulfate 325 mg 07/20/19 17:00 07/23/19 13:06 Feosol PO 325 mg BID-WM LUISA Administration Heparin Sodium (Porcine) 5,000 units 07/15/19 21:00 07/23/19 13:08 Heparin SC 5,000 units BID LUISA Administration Hydralazine HCl 10 mg 07/15/19 16:50 07/17/19 16:58 Apresoline SLOW IVP 10 mg Q4H PRN Administration SBP Greater Than 180 Insulin Human Lispro 0 units 07/15/19 02:52 07/22/19 17:15 Humalog SC 4 unit .MILD SLIDING SCALE PRN Administration Mild Correctional Scale Insulin Human Lispro 0 units 07/15/19 02:52 07/22/19 20:09 Humalog SC 2 unit .BEDTIME SLIDING SC PRN Administration Bedtime Correctional Scale Lisinopril 20 mg 07/19/19 09:00 07/23/19 13:00 Zestril PO 20 mg BID LUISA Administration Nifedipine 60 mg 07/17/19 21:00 07/23/19 13:00 Procardia Xl PO 60 mg BID LUISA Administration Senna/Docusate Sodium 2 tab 07/15/19 21:00 07/23/19 13:00 Senokot S PO 2 tab BID LUISA Administration Sevelamer Carbonate 1,600 mg 07/16/19 08:00 07/23/19 13:08 Renvela PO 1,600 mg TID-WM LUISA Administration Torsemide 100 mg 07/23/19 09:00 07/23/19 13:08 Demadex PO 100 mg DAILY LUISA Administration - Exam General Appearance: NAD, awake alert Eye: PERRL, anicteric sclera ENT: normocephalic atraumatic, no oropharyngeal lesions Neck: supple, symmetric, no JVD, no thyromegaly Heart: RRR, no murmur, no gallops, no rubs, normal peripheral pulses Respiratory: CTAB, no wheezes, no rales, no ronchi Gastrointestinal: soft, non-tender, non-distended, normal bowel sounds Extremities: no cyanosis Extremities - other findings: RUE with AV fistula in place, N/V intact distally Skin: normal turgor Neurological: cranial nerve grossly intact, no new deficit Musculoskeletal: normal tone, normal strength, no muscle wasting Psychiatric: normal affect, A&O x 3 Hosp A/P (1) ESRD (end stage renal disease) on dialysis Code(s): N18.6 - END STAGE RENAL DISEASE; Z99.2 - DEPENDENCE ON RENAL DIALYSIS Status: Acute Plan: Awaiting HD coordination for outpatient, complicated due to lack of funding (2) Anemia in CKD (chronic kidney disease) Code(s): N18.9 - CHRONIC KIDNEY DISEASE, UNSPECIFIED; D63.1 - ANEMIA IN CHRONIC KIDNEY DISEASE Status: Chronic Plan: Stable, serial monitoring (3) Diabetes mellitus Code(s): E11.9 - TYPE 2 DIABETES MELLITUS WITHOUT COMPLICATIONS Status: Chronic (4) Hypertension Code(s): I10 - ESSENTIAL (PRIMARY) HYPERTENSION Status: Chronic Qualifiers: Hypertension type: essential hypertension Qualified Code(s): I10 - Essential (primary) hypertension - Plan plan discussed w/ family, social work faculty member, out of bed/ambulate, DVT proph w/SCDs Stable currently HD per Renal service Continue Lisinopril/Nifedipine [facility] completed in RUE
[2019-07-23] MEDS: HumaLOG 300 UNITS/3 ML VIAL SC PRN ×2 (16:41→21:52)
[2019-07-23] MEDS: Acetaminophen 500 MG TAB PO PRN (16:46)
[2019-07-24] MEDS: HumaLOG 300 UNITS/3 ML VIAL SC PRN ×4 (06:44→21:32)
[2019-07-24] MEDS: Cinacalcet HCl 30 MG TAB PO SCH (07:58)
[2019-07-24] MEDS: Carvedilol 6.25 MG TAB PO SCH ×2 (07:58→21:21)
[2019-07-24] MEDS: Ferrous Sulfate 325 MG TAB PO SCH ×2 (07:58→16:29)
[2019-07-24] MEDS: Calcitriol 0.25 MCG CAP PO SCH (07:58)
[2019-07-24] MEDS: Senokot S 8.6-50 MG TAB PO SCH ×2 (07:58→21:21)
[2019-07-24] MEDS: Famotidine 20 MG TAB PO SCH (07:58)
[2019-07-24] MEDS: NIFEdipine XL 60 MG TAB PO SCH ×2 (07:58→21:22)
[2019-07-24] MEDS: Sevelamer Carbonate 800 MG TAB PO SCH ×3 (07:58→16:29)
[2019-07-24] MEDS: Lisinopril 20 MG TAB PO SCH (07:59)
[2019-07-24] MEDS: Heparin 5,000 UNITS/ML VIAL SC SCH ×2 (07:59→21:24)
[2019-07-24] MEDS: Calcium Carbonate + Vit D 1 TAB PO SCH (07:59)
[2019-07-24] MEDS: Torsemide 100 MG TAB PO SCH (07:59)
[2019-07-24] MEDS: hydrALAZINE 25 MG TAB PO SCH ×2 (08:58→14:33)
[2019-07-24 09:39] LABS: Albumin 2.6 g/dL (3.4-4.8); Anion Gap 13 mmol/L (10-20); BUN (Urea Nitrogen) 30 mg/dL (9.8-20.1); Calc. Creatinine Clearance 13 mL/min (70-130); Calcium 7.7 mg/dL (7.8-10.44); Carbon Dioxide 26 mmol/L (23-31); Chloride 96 mmol/L (98-107); Estimated GFR-MDRD 9; Glucose 291 mg/dL (80-115); Phosphorus 5.2 mg/dL (2.3-4.7); Potassium 3.8 mmol/L (3.5-5.1); Sodium 131 mmol/L (136-145)
--- NOTE | 2019-07-24 11:49 | PRG ---
DATE OF SERVICE: 07/24/2019 SERVICE: Nephrology. SUBJECTIVE: A 63-year-old female admitted with worsening shortness of breath and found to have end-stage renal disease and was initiated on hemodialysis. The patient is awaiting for placement. No new complaint. OBJECTIVE: VITAL SIGNS: Temperature 98.3, pulse 67, respiratory rate 16, SpO2 of 96% on room air, and blood pressure is 175/82. GENERAL: Comfortable female, in no distress. Afebrile. Anicteric. Acyanotic. HEENT: Normocephalic and atraumatic. CARDIOVASCULAR: Regular rhythm and rate with normal heart sounds 1 and 2. RESPIRATORY: Fair air entry bilaterally with no crackle or rhonchi or use of accessory muscles. GI: Obese, soft, nontender, and nondistended with normal bowel sounds. EXTREMITIES: Grossly normal looking atraumatic with no edema or erythema. SEBD TEACHER: Conscious, alert, and oriented x3 with appropriate mental status. DIAGNOSTIC DATA: Chemistry showed sodium 131, potassium 3.8, chloride 96, CO2 of 26, BUN 30, creatinine 4.84, glucose 291, calcium 9.9, phosphorus 5.2, and albumin 2.6. ASSESSMENT: 1. End-stage renal disease, now on hemodialysis. 2. Nephrotic-range proteinuria due to presumed diabetic nephropathy. 3. Hypertension: Control is still suboptimal. 4. Anemia in chronic kidney disease. 5. Hyperphosphatemia. 6. Secondary hyperparathyroidism. 7. Vitamin D deficiency. 8. Volume overload: Improved/resolved with diuretics and hemodialysis. PLAN: We will add hydralazine 25 mg p.o. t.i.d. to nifedipine and lisinopril. We will monitor vitals and titrate hydralazine to get adequate BP control. The patient can be discharged once placement can be concluded. Job ID: [id number]
--- NOTE | 2019-07-24 16:53 | PDOC.HOSPP ---
- Subjective Encounter Date: 07/24/19 Encounter Time: 01:45 Subjective: pt had HD y'day. seen at bedside. family nearby. pt sitting in the chair, no acute issues. awaiting for outpt HD to be arranged prior to dc. -one episode of high BP this am, repeat levels ok. - Objective Vital Signs & Weight: Vital Signs (12 hours) Temp Pulse Resp BP BP BP Pulse Ox 07/24/19 16:01 97.9 F 73 18 109/70 97 07/24/19 14:33 77 97/61 07/24/19 14:32 77 97/61 98 07/24/19 11:11 98.1 F 77 18 169/76 H 96 07/24/19 08:58 78 185/80 H 07/24/19 07:59 96 07/24/19 07:58 77 175/82 H 07/24/19 07:16 98.3 F 67 16 175/82 H 96 Weight Weight 156 lb 3.2 oz I&O: 07/23/19 07/24/19 07/25/19 06:59 06:59 06:59 Intake Total 720 750 Output Total 2500 Balance -1780 750 Result Diagrams: 07/21/19 05:55 07/24/19 08:54 Additional Labs: Accuchecks 07/24/19 07/24/19 07/24/19 16:07 11:18 04:37 POC Glucose 212 H 241 H 191 H 07/23/19 07/23/19 20:15 16:42 POC Glucose 259 H 280 H Hospitalist ROS - Medication Medications: Active Medications Generic Name Dose Route Start Last Admin Trade Name Johnq PRN Reason Stop Dose Admin Acetaminophen 1,000 mg 07/16/19 11:30 07/23/19 16:46 Tylenol PO 1,000 mg Q6H PRN Administration Moderate Pain (4-6) Calcitriol 0.25 mcg 07/16/19 09:00 07/24/19 07:58 Rocaltrol PO 0.25 mcg DAILY LUISA Administration Calcium/Vitamin D 1 tab 07/18/19 09:00 07/24/19 07:59 Caltrate 600 + Vit D PO 1 tab DAILY LUISA Administration Carvedilol 6.25 mg 07/20/19 21:00 07/24/19 07:58 Coreg PO 6.25 mg BID LUISA Administration Cinacalcet 30 mg 07/16/19 08:00 07/24/19 07:58 Sensipar PO 30 mg QAM-WM LUISA Administration Clonidine 0.1 mg 07/15/19 16:50 07/17/19 17:51 Catapres PO 0.1 mg Q4H PRN Administration SBP Greater Than 180 Epoetin Ky-epbx 7,500 unit 07/20/19 17:00 07/20/19 21:08 Retacrit SC 7,500 unit Q7D LUISA Administration Ergocalciferol 1.25 mg 07/22/19 09:00 07/22/19 11:00 Drisdol PO 1.25 mg Q7DAYS LUISA Administration Famotidine 20 mg 07/16/19 09:00 07/24/19 07:58 Pepcid PO 20 mg DAILY LUISA Administration Ferrous Sulfate 325 mg 07/20/19 17:00 07/24/19 16:29 Feosol PO 325 mg BID-WM LUISA Administration Heparin Sodium (Porcine) 5,000 units 07/15/19 21:00 07/24/19 07:59 Heparin SC 5,000 units BID LUISA Administration Hydralazine HCl 10 mg 07/15/19 16:50 07/17/19 16:58 Apresoline SLOW IVP 10 mg Q4H PRN Administration SBP Greater Than 180 Hydralazine HCl 25 mg 07/24/19 09:00 07/24/19 14:33 Apresoline PO Not Given TID [facility] Insulin Human Lispro 0 units 07/15/19 02:52 07/24/19 16:29 Humalog SC 3 unit .MILD SLIDING SCALE PRN Administration Mild Correctional Scale Insulin Human Lispro 0 units 07/15/19 02:52 07/23/19 21:52 Humalog SC 3 unit .BEDTIME SLIDING SC PRN Administration Bedtime Correctional Scale Lisinopril 20 mg 07/19/19 09:00 07/24/19 07:59 Zestril PO 20 mg BID [facility] Administration Nifedipine 60 mg 07/17/19 21:00 07/24/19 07:58 Procardia Xl PO 60 mg BID [facility] Administration Senna/Docusate Sodium 2 tab 07/15/19 21:00 07/24/19 07:58 Senokot S PO 2 tab BID [facility] Administration Sevelamer Carbonate 1,600 mg 07/16/19 08:00 07/24/19 16:29 Renvela PO 1,600 mg TID-WM LUISA Administration Torsemide 100 mg 07/23/19 09:00 07/24/19 07:59 Demadex PO 100 mg DAILY [facility] Administration - Exam General Appearance: NAD, awake alert Eye: PERRL, anicteric sclera ENT: normocephalic atraumatic Neck: supple, symmetric Heart: RRR, no murmur Respiratory: CTAB Gastrointestinal: soft, non-distended, normal bowel sounds Neurological: no focal deficits Hosp A/P - Plan End stage renal disease) on dialysis AV fistula -RUE -on cinacalcet, calcitriol, caCo3, and ergocaliciferon, phoslo (2) Anemia in CKD (chronic kidney disease) -stable -FeSO4 (3) Diabetes mellitus Code(s): E11.9 - TYPE 2 DIABETES MELLITUS WITHOUT COMPLICATIONS Status: Chronic BG still high -schedule low dose humalog -fw on a1c. (4) Hypertension - Lisinopril/Nifedipine and coreg, hydralazine. -one episode of high BP this am, repeat levels ok. CM for outpt coordination for charitable HD awaiting for outpt HD to be arranged prior to dc.
[2019-07-24] MEDS: traMADol HCl 50 MG TAB PO PRN (21:23)
[2019-07-24] MEDS: HumuLIN 70/30 (300 UNITS/3 ML VIAL) SC SCH (21:29)
[2019-07-25 05:12] LABS: Hemoglobin A1c 7.9 % (4.0-6.0)
[2019-07-25] MEDS: HumaLOG 300 UNITS/3 ML VIAL SC PRN ×2 (05:40→13:05)
[2019-07-25] MEDS: Ferrous Sulfate 325 MG TAB PO SCH ×2 (09:05→17:07)
[2019-07-25] MEDS: Senokot S 8.6-50 MG TAB PO SCH ×2 (09:06→21:02)
[2019-07-25] MEDS: Sevelamer Carbonate 800 MG TAB PO SCH ×3 (09:07→17:07)
[2019-07-25] MEDS: NIFEdipine XL 60 MG TAB PO SCH ×2 (09:10→21:01)
[2019-07-25] MEDS: Calcitriol 0.25 MCG CAP PO SCH (09:10)
[2019-07-25] MEDS: Cinacalcet HCl 30 MG TAB PO SCH (09:12)
[2019-07-25] MEDS: Calcium Carbonate + Vit D 1 TAB PO SCH (09:12)
[2019-07-25] MEDS: Carvedilol 6.25 MG TAB PO SCH ×2 (09:12→21:01)
[2019-07-25] MEDS: HumuLIN 70/30 (300 UNITS/3 ML VIAL) SC SCH ×2 (09:13→21:02)
[2019-07-25] MEDS: Famotidine 20 MG TAB PO SCH (09:13)
[2019-07-25] MEDS: Heparin 5,000 UNITS/ML VIAL SC SCH ×2 (09:13→21:02)
[2019-07-25] MEDS: Torsemide 100 MG TAB PO SCH (09:14)
--- NOTE | 2019-07-25 13:47 | PDOC.HOSPP ---
- Subjective Encounter Date: 07/25/19 Encounter Time: 09:45 Subjective: BP better today, pt resting, son at bedside. anxious, when OP HD will be set up. - Objective Vital Signs & Weight: Vital Signs (12 hours) Temp Pulse Resp BP BP Pulse Ox 07/25/19 09:12 103/66 07/25/19 09:10 74 103/66 07/25/19 08:00 97.8 F 75 14 103/66 89 L 07/25/19 05:16 98.0 F 74 16 109/66 98 Weight Weight 156 lb 3.2 oz I&O: 07/24/19 07/25/19 07/26/19 06:59 06:59 06:59 Intake Total 720 990 240 Output Total 2500 Balance -1780 990 240 Result Diagrams: 07/21/19 05:55 07/24/19 08:54 Additional Labs: Accuchecks 07/25/19 07/25/19 07/24/19 11:52 04:37 19:18 POC Glucose 211 H 241 H 247 H 07/24/19 16:07 POC Glucose 212 H Hospitalist ROS - Medication Medications: Active Medications Generic Name Dose Route Start Last Admin Trade Name Freq PRN Reason Stop Dose Admin Acetaminophen 1,000 mg 07/16/19 11:30 07/23/19 16:46 Tylenol PO 1,000 mg Q6H PRN Administration Moderate Pain (4-6) Calcitriol 0.25 mcg 07/16/19 09:00 07/25/19 09:10 Rocaltrol PO 0.25 mcg DAILY LUISA Administration Calcium/Vitamin D 1 tab 07/18/19 09:00 07/25/19 09:12 Caltrate 600 + Vit D PO 1 tab DAILY LUISA Administration Carvedilol 6.25 mg 07/24/19 21:00 07/25/19 09:12 Coreg PO Not Given BID LUISA Cinacalcet 30 mg 07/16/19 08:00 07/25/19 09:12 Sensipar PO 30 mg QAM-WM LUISA Administration Clonidine 0.1 mg 07/15/19 16:50 07/17/19 17:51 Catapres PO 0.1 mg Q4H PRN Administration SBP Greater Than 180 Epoetin Ky-epbx 7,500 unit 07/20/19 17:00 07/20/19 21:08 Retacrit SC 7,500 unit Q7D LUISA Administration Ergocalciferol 1.25 mg 07/22/19 09:00 07/22/19 11:00 Drisdol PO 1.25 mg Q7DAYS LUISA Administration Famotidine 20 mg 07/16/19 09:00 07/25/19 09:13 Pepcid PO 20 mg DAILY LUISA Administration Ferrous Sulfate 325 mg 07/20/19 17:00 07/25/19 09:05 Feosol PO 325 mg BID-WM LUISA Administration Heparin Sodium (Porcine) 5,000 units 07/15/19 21:00 07/25/19 09:13 Heparin SC 5,000 units BID LUISA Administration Hydralazine HCl 10 mg 07/15/19 16:50 07/17/19 16:58 Apresoline SLOW IVP 10 mg Q4H PRN Administration SBP Greater Than 180 Insulin Human Isoph/Insulin Regular 10 units 07/24/19 21:00 07/25/19 09:13 Humulin 70/30 SC 10 unit BID LUISA Administration Insulin Human Lispro 0 units 07/15/19 02:52 07/25/19 13:05 Humalog SC 3 unit .MILD SLIDING SCALE PRN Administration Mild Correctional Scale Insulin Human Lispro 0 units 07/15/19 02:52 07/24/19 21:32 Humalog SC 3 unit .BEDTIME SLIDING SC PRN Administration Bedtime Correctional Scale Nifedipine 60 mg 07/24/19 21:00 07/25/19 09:10 Procardia Xl PO 60 mg BID LUISA Administration Senna/Docusate Sodium 2 tab 07/15/19 21:00 07/25/19 09:06 Senokot S PO 2 tab BID LUISA Administration Sevelamer Carbonate 1,600 mg 07/16/19 08:00 07/25/19 13:03 Renvela PO 1,600 mg TID-WM LUISA Administration Torsemide 100 mg 07/23/19 09:00 07/25/19 09:14 Demadex PO 100 mg DAILY LUISA Administration Tramadol HCl 50 mg 07/16/19 11:30 07/24/19 21:23 Ultram PO 50 mg Q12H PRN Administration Severe Pain (7-10) - Exam General Appearance: NAD, awake alert Eye: PERRL ENT: normocephalic atraumatic Neck: supple, symmetric Heart: RRR Respiratory: CTAB Gastrointestinal: soft, non-distended Extremities: no cyanosis Skin: normal turgor Neurological: no new deficit Musculoskeletal: normal tone Psychiatric: A&O x 3, oriented to place Hosp A/P - Plan End stage renal disease) on dialysis AV fistula -RUE -on cinacalcet, calcitriol, caCo3, and ergocaliciferon, phoslo (2) Anemia in CKD (chronic kidney disease) -stable -FeSO4 (3) Diabetes mellitus Code(s): E11.9 - TYPE 2 DIABETES MELLITUS WITHOUT COMPLICATIONS Status: Chronic BG still high -schedule low dose humalog -fw on a1c. (4) Hypertension - Nifedipine and coreg, hydralazine. with holding parameters. -one episode of high BP this am, repeat levels ok. -hold Lisinopril/hydrala as BP on the low side since y'day. CM for outpt coordination for charitable HD awaiting for outpt HD to be arranged prior to dc.
[2019-07-25] MEDS: traMADol HCl 50 MG TAB PO PRN (21:10)
[2019-07-26 05:48] LABS: Hemoglobin 9.2 g/dL (12.0-16.0); Mean Corpuscular HGB CONC 34.3 g/dL (32.0-36.0); Mean Corpuscular Hemoglobin 31.2 pg (27.0-31.0); Mean Corpuscular Volume 91.1 fL (78.0-98.0); Mean Platelet Volume 8.3 fL (7.4-10.4); Platelet Count 304 thou/uL (130-400); RBC Distribution Width 13.6 % (11.5-14.5); Red Blood Cell (RBC) Count 2.94 mill/uL (4.20-5.40); White Blood Cell (WBC) Count 10.8 thou/uL (4.8-10.8)
[2019-07-26 06:09] LABS: Albumin 2.7 g/dL (3.4-4.8); Anion Gap 14 mmol/L (10-20); BUN (Urea Nitrogen) 57 mg/dL (9.8-20.1); BUN/Creatinine Ratio 7.23; Calc. Creatinine Clearance 8 mL/min (70-130); Calcium 7.6 mg/dL (7.8-10.44); Carbon Dioxide 28 mmol/L (23-31); Chloride 92 mmol/L (98-107); Estimated GFR-MDRD 5; Glucose 116 mg/dL (80-115); Phosphorus 6.6 mg/dL (2.3-4.7); Potassium 3.8 mmol/L (3.5-5.1); Sodium 130 mmol/L (136-145)
[2019-07-26] MEDS: Sevelamer Carbonate 800 MG TAB PO SCH ×3 (07:55→18:19)
[2019-07-26] MEDS ORDERED: Metoprolol Tartrate 5 MG/5 ML VIAL IVP SCH (08:00)
[2019-07-26] MEDS ORDERED: Enoxaparin Sodium 60 MG/0.6 ML SYRINGE SC SCH (09:00)
[2019-07-26] MEDS: HumuLIN 70/30 (300 UNITS/3 ML VIAL) SC SCH ×2 (09:00→20:33)
[2019-07-26] MEDS: Heparin 5,000 UNITS/ML VIAL SC SCH ×2 (09:00→20:32)
[2019-07-26] MEDS ORDERED: Heparin 10,000 UNITS/ 10 ML VIAL ONE (09:54)
[2019-07-26] MEDS: Calcitriol 0.25 MCG CAP PO SCH (12:28)
[2019-07-26] MEDS: Calcium Carbonate + Vit D 1 TAB PO SCH (12:28)
[2019-07-26] MEDS: Senokot S 8.6-50 MG TAB PO SCH ×2 (12:39→20:31)
[2019-07-26] MEDS: Carvedilol 6.25 MG TAB PO SCH ×2 (12:40→20:32)
[2019-07-26] MEDS: Torsemide 100 MG TAB PO SCH (12:40)
[2019-07-26] MEDS: Famotidine 20 MG TAB PO SCH (12:40)
[2019-07-26] MEDS: Ferrous Sulfate 325 MG TAB PO SCH ×2 (12:40→18:28)
[2019-07-26] MEDS: NIFEdipine XL 60 MG TAB PO SCH ×2 (12:41→20:32)
[2019-07-26] MEDS: Lisinopril 20 MG TAB PO SCH ×2 (12:41→20:32)
[2019-07-26 13:05] VITALS: BMI 32.7
--- NOTE | 2019-07-26 13:10 | PDOC.HOSPP ---
- Subjective Encounter Date: 07/26/19 Encounter Time: 11:00 Subjective: seen in dialysis area. no acute events, pt doing well. - Objective Vital Signs & Weight: Vital Signs (12 hours) Temp Pulse Resp BP Pulse Ox 07/26/19 12:43 97.5 F L 85 16 125/71 97 Weight Admit Weight 171 lb 15.369 oz Weight 151 lb 2 oz I&O: 07/25/19 07/26/19 07/27/19 06:59 06:59 06:59 Intake Total 990 960 Balance 990 960 Result Diagrams: 07/26/19 05:30 07/26/19 03:30 Additional Labs: Accuchecks 07/26/19 07/26/19 07/25/19 12:51 04:42 20:04 POC Glucose 178 H 118 H 201 H 07/25/19 16:17 POC Glucose 153 H Hospitalist ROS - Medication Medications: Active Medications Generic Name Dose Route Start Last Admin Trade Name Freq PRN Reason Stop Dose Admin Acetaminophen 1,000 mg 07/16/19 11:30 07/23/19 16:46 Tylenol PO 1,000 mg Q6H PRN Administration Moderate Pain (4-6) Calcitriol 0.25 mcg 07/16/19 09:00 07/26/19 12:28 Rocaltrol PO 0.25 mcg DAILY LUISA Administration Calcium/Vitamin D 1 tab 07/18/19 09:00 07/26/19 12:28 Caltrate 600 + Vit D PO 1 tab DAILY LUISA Administration Carvedilol 6.25 mg 07/24/19 21:00 07/26/19 12:40 Coreg PO 6.25 mg BID LUISA Administration Cinacalcet 30 mg 07/16/19 08:00 07/25/19 09:12 Sensipar PO 30 mg QAM-WM LUISA Administration Clonidine 0.1 mg 07/15/19 16:50 07/17/19 17:51 Catapres PO 0.1 mg Q4H PRN Administration SBP Greater Than 180 Epoetin Ky-epbx 7,500 unit 07/20/19 17:00 07/20/19 21:08 Retacrit SC 7,500 unit Q7D LUISA Administration Ergocalciferol 1.25 mg 07/22/19 09:00 07/22/19 11:00 Drisdol PO 1.25 mg Q7DAYS LUISA Administration Famotidine 20 mg 07/16/19 09:00 07/26/19 12:40 Pepcid PO 20 mg DAILY LUISA Administration Ferrous Sulfate 325 mg 07/20/19 17:00 07/26/19 12:40 Feosol PO 325 mg BID-WM LUISA Administration Heparin Sodium (Porcine) 5,000 units 07/15/19 21:00 07/25/19 21:02 Heparin SC 5,000 units BID LUISA Administration Hydralazine HCl 10 mg 07/15/19 16:50 07/17/19 16:58 Apresoline SLOW IVP 10 mg Q4H PRN Administration SBP Greater Than 180 Insulin Human Isoph/Insulin Regular 10 units 07/24/19 21:00 07/25/19 21:02 Humulin 70/30 SC 10 unit BID LUISA Administration Insulin Human Lispro 0 units 07/15/19 02:52 07/25/19 13:05 Humalog SC 3 unit .MILD SLIDING SCALE PRN Administration Mild Correctional Scale Insulin Human Lispro 0 units 07/15/19 02:52 07/24/19 21:32 Humalog SC 3 unit .BEDTIME SLIDING SC PRN Administration Bedtime Correctional Scale Lisinopril 20 mg 07/26/19 09:00 07/26/19 12:41 Zestril PO 20 mg BID LUISA Administration Nifedipine 60 mg 07/24/19 21:00 07/26/19 12:41 Procardia Xl PO 60 mg BID LUISA Administration Senna/Docusate Sodium 2 tab 07/15/19 21:00 07/26/19 12:39 Senokot S PO 2 tab BID LUISA Administration Sevelamer Carbonate 1,600 mg 07/16/19 08:00 07/26/19 12:28 Renvela PO 1,600 mg TID-WM LUISA Administration Torsemide 100 mg 07/23/19 09:00 07/26/19 12:40 Demadex PO 100 mg DAILY LUISA Administration - Exam General Appearance: NAD, awake alert Eye: PERRL ENT: normocephalic atraumatic Neck: supple Heart: RRR Respiratory: CTAB Gastrointestinal: normal bowel sounds, no palpable masses Extremities: no cyanosis Skin: normal turgor Neurological: no focal deficits Hosp A/P - Plan End stage renal disease) on dialysis AV fistula -RUE -on cinacalcet, calcitriol, caCo3, and ergocaliciferon, phoslo (2) Anemia in CKD (chronic kidney disease) -stable -FeSO4 (3) Diabetes mellitus Code(s): E11.9 - TYPE 2 DIABETES MELLITUS WITHOUT COMPLICATIONS Status: Chronic BG still high -schedule low dose humalog -fw on a1c. (4) Hypertension - Nifedipine and coreg, hydralazine. with holding parameters. -one episode of high BP this am, repeat levels ok. -hold Lisinopril/hydrala as BP on the low side since y'day. CM for outpt coordination for [facility] HD awaiting for outpt HD to be arranged prior to dc. 10th - pt getting m/w/f HD. no acute medical issues at this time. pending HD placement.
[2019-07-26] MEDS ORDERED: Tuberculin PPD 0.1 ML VIAL I-DERMAL SCH (13:15)
--- NOTE | 2019-07-26 14:03 | PRG ---
DATE OF SERVICE: 07/26/2019 SERVICE: Nephrology. SUBJECTIVE: A 63-year-old female, seen in followup for end-stage renal disease management. The patient was admitted with chest pain and shortness of breath, and subsequently found to have CKD stage 5 with anasarca, and was subsequently initiated on hemodialysis. No new problem. OBJECTIVE: VITAL SIGNS: Temperature 97.5, pulse 85, respiratory rate 16, SpO2 of 97% on room air, and blood pressure is 125/71. GENERAL: Comfortable female, in no distress. Afebrile. Anicteric. Acyanotic. HEENT: Normocephalic, atraumatic. Oral mucosa is moist. CARDIOVASCULAR: Regular rhythm and rate with normal heart sounds one and two. RESPIRATORY: Good air entry bilaterally with no crackles, rhonchi, or use of accessory muscles. GI: Full, soft, nontender, nondistended with normal bowel sounds. EXTREMITIES: Grossly normal looking, atraumatic with mild edema. No erythema appreciated. NURSE PRACTITIONER PHYSICIAN ASSISTANT: Conscious, alert, oriented x3 with appropriate mental status. DIAGNOSTIC DATA: CBC showed WBC count of 10.8, hemoglobin of 9.2, and platelets of 304. Renal function panel showed sodium 130, potassium 3.8, chloride 92, CO2 of 28, BUN 57, creatinine 7.88, glucose 116, calcium 7.6, phosphorus 6.6, and albumin 2.7. ASSESSMENT: 1. End-stage renal disease, now on hemodialysis. 2. Hypertension: Control is better. 3. Hyperphosphatemia: The patient is on Renvela. 4. Anemia in chronic kidney disease. 5. Generalized edema: Improved. 6. Nephrotic-range proteinuria. 7. Diabetes mellitus. 8. Presumed diabetic nephropathy. PLAN: 1. We will restart lisinopril given nephrotic-range proteinuria. This will also help blood pressure control. 2. If needed, we will cut back nifedipine to be able to incorporate lisinopril in antihypertensive regimen. 3. Continue other treatments. 4. We will dialyze the patient today for 4 hours. 5. Once outpatient dialysis could be scheduled, the patient can be discharged from Nephrology point of view. 6. Care plan was discussed with the patient and son at the bedside with the help of a ribbon weaver. Job ID: [id number]
[2019-07-26] MEDS: Cinacalcet HCl 30 MG TAB PO SCH (14:22)
[2019-07-26] MEDS: HumaLOG 300 UNITS/3 ML VIAL SC PRN ×2 (14:22→18:49)
[2019-07-27] MEDS: Calcitriol 0.25 MCG CAP PO SCH (08:39)
[2019-07-27] MEDS: NIFEdipine XL 60 MG TAB PO SCH ×2 (08:39→20:02)
[2019-07-27] MEDS: Sevelamer Carbonate 800 MG TAB PO SCH ×3 (08:39→16:54)
[2019-07-27] MEDS: Famotidine 20 MG TAB PO SCH (08:40)
[2019-07-27] MEDS: Senokot S 8.6-50 MG TAB PO SCH ×2 (08:41→20:03)
[2019-07-27] MEDS: Carvedilol 6.25 MG TAB PO SCH ×2 (08:41→20:03)
[2019-07-27] MEDS: Lisinopril 20 MG TAB PO SCH ×2 (08:42→20:03)
[2019-07-27] MEDS: Ferrous Sulfate 325 MG TAB PO SCH ×2 (08:42→16:55)
[2019-07-27] MEDS: Cinacalcet HCl 30 MG TAB PO SCH (08:43)
[2019-07-27] MEDS: HumuLIN 70/30 (300 UNITS/3 ML VIAL) SC SCH ×2 (08:43→20:04)
[2019-07-27] MEDS: Heparin 5,000 UNITS/ML VIAL SC SCH ×2 (08:47→20:03)
[2019-07-27] MEDS: Torsemide 100 MG TAB PO SCH (08:49)
[2019-07-27] MEDS: Calcium Carbonate + Vit D 1 TAB PO SCH (09:44)
--- NOTE | 2019-07-27 12:50 | PDOC.HOSPP ---
- Subjective Encounter Date: 07/27/19 Encounter Time: 09:25 Subjective: son at bedside, no acute events, talk to CM reg.. op HD chair. in the process. -BG AND bp acceptable range. - Objective Vital Signs & Weight: Vital Signs (12 hours) Temp Pulse Resp BP BP BP Pulse Ox 07/27/19 08:42 114/68 07/27/19 08:39 75 07/27/19 07:21 98.0 F 75 20 108/68 97 07/27/19 05:00 97.7 F 72 18 110/69 98 07/27/19 04:00 97.7 F 72 16 110/64 98 Weight Admit Weight 171 lb 15.369 oz Weight 147 lb 7.828 oz I&O: 07/26/19 07/27/19 07/28/19 06:59 06:59 06:59 Intake Total 960 Balance 960 Result Diagrams: 07/26/19 05:30 07/26/19 03:30 Additional Labs: Accuchecks 07/27/19 07/27/19 07/26/19 11:10 04:21 20:34 POC Glucose 164 H 110 122 H 07/26/19 07/26/19 16:14 12:51 POC Glucose 277 H 178 H Hospitalist ROS - Medication Medications: Active Medications Generic Name Dose Route Start Last Admin Trade Name Freq PRN Reason Stop Dose Admin Acetaminophen 1,000 mg 07/16/19 11:30 07/23/19 16:46 Tylenol PO 1,000 mg Q6H PRN Administration Moderate Pain (4-6) Calcitriol 0.25 mcg 07/16/19 09:00 07/27/19 08:39 Rocaltrol PO 0.25 mcg DAILY LUISA Administration Calcium/Vitamin D 1 tab 07/18/19 09:00 07/27/19 09:44 Caltrate 600 + Vit D PO 1 tab DAILY LUISA Administration Carvedilol 6.25 mg 07/24/19 21:00 07/27/19 08:41 Coreg PO 6.25 mg BID LUISA Administration Cinacalcet 30 mg 07/16/19 08:00 07/27/19 08:43 Sensipar PO 30 mg QAM-WM LUISA Administration Clonidine 0.1 mg 07/15/19 16:50 07/17/19 17:51 Catapres PO 0.1 mg Q4H PRN Administration SBP Greater Than 180 Epoetin Ky-epbx 7,500 unit 07/20/19 17:00 07/20/19 21:08 Retacrit SC 7,500 unit Q7D LUIAS Administration Ergocalciferol 1.25 mg 07/22/19 09:00 07/22/19 11:00 Drisdol PO 1.25 mg Q7DAYS LUISA Administration Famotidine 20 mg 07/16/19 09:00 07/27/19 08:40 Pepcid PO 20 mg DAILY LUISA Administration Ferrous Sulfate 325 mg 07/20/19 17:00 07/27/19 08:42 Feosol PO 325 mg BID-WM LUISA Administration Heparin Sodium (Porcine) 5,000 units 07/15/19 21:00 07/27/19 08:47 Heparin SC 5,000 units BID LUISA Administration Hydralazine HCl 10 mg 07/15/19 16:50 07/17/19 16:58 Apresoline SLOW IVP 10 mg Q4H PRN Administration SBP Greater Than 180 Insulin Human Isoph/Insulin Regular 10 units 07/24/19 21:00 07/27/19 08:43 Humulin 70/30 SC 10 unit BID LUISA Administration Insulin Human Lispro 0 units 07/15/19 02:52 07/26/19 18:49 Humalog SC 4 unit .MILD SLIDING SCALE PRN Administration Mild Correctional Scale Insulin Human Lispro 0 units 07/15/19 02:52 07/24/19 21:32 Humalog SC 3 unit .BEDTIME SLIDING SC PRN Administration Bedtime Correctional Scale Lisinopril 20 mg 07/26/19 09:00 07/27/19 08:42 Zestril PO 20 mg BID LUISA Administration Nifedipine 60 mg 07/24/19 21:00 07/27/19 08:39 Procardia Xl PO 60 mg BID LUISA Administration Senna/Docusate Sodium 2 tab 07/15/19 21:00 07/27/19 08:41 Senokot S PO 2 tab BID LUISA Administration Sevelamer Carbonate 1,600 mg 07/16/19 08:00 07/27/19 11:55 Renvela PO 1,600 mg TID-WM LUISA Administration Torsemide 100 mg 07/23/19 09:00 07/27/19 08:49 Demadex PO 100 mg DAILY LUISA Administration Tuberculin PPD 0.1 ml 07/26/19 13:15 07/26/19 15:07 Tuberculin Ppd I-DERMAL 07/29/19 13:16 0.1 ml ONE LUISA Administration - Exam General Appearance: NAD, awake alert Eye: PERRL ENT: normocephalic atraumatic Neck: supple Heart: RRR Respiratory: CTAB Gastrointestinal: soft, normal bowel sounds Extremities - other findings: AVF Hosp A/P - Plan End stage renal disease) on dialysis AV fistula -RUE -on cinacalcet, calcitriol, caCo3, and ergocaliciferon, phoslo (2) Anemia in CKD (chronic kidney disease) -stable -FeSO4 (3) Diabetes mellitus Code(s): E11.9 - TYPE 2 DIABETES MELLITUS WITHOUT COMPLICATIONS Status: Chronic BG still high -schedule low dose humalog -fw on a1c. (4) Hypertension - Nifedipine and coreg, hydralazine. with holding parameters. -one episode of high BP this am, repeat levels ok. -hold Lisinopril/hydrala as BP on the low side since y'day. [facility] for [facility] HD to be arranged prior to dc. 10th - pt getting m/w/f HD. no acute medical issues at this time. pending HD placement. 11th -BG AND bp acceptable range. -pt seen and talk to her and son. -d/w CM -pening OP HD chair.
[2019-07-27] MEDS: EPOETIN ALFA-EPBX (ESRD) 4,000 UNIT/ML VIAL SC SCH (16:54)
[2019-07-27] MEDS: HumaLOG 300 UNITS/3 ML VIAL SC PRN (20:07)
[2019-07-28 07:20] VITALS: TEMP 97.8
[2019-07-28] MEDS ORDERED: Polyethylene Glycol 3350 17 GM Packet PO SCH (08:00)
--- NOTE | 2019-07-28 08:05 | PRG ---
DATE OF SERVICE: 07/28/2019 SERVICE: Nephrology. SUBJECTIVE: A 63-year-old female seen in followup for end-stage renal disease management. The patient initially was admitted due to worsening shortness of breath and chest pain, and found to have acute on chronic renal failure, now end-stage and was initiated on hemodialysis. The patient is doing well. No new complaint. The patient is awaiting outpatient dialysis arrangements. OBJECTIVE: VITAL SIGNS: Temperature 97.8, pulse 77, respiratory rate 20, SpO2 of 97% on room air, blood pressure is 136/73. GENERAL: Comfortable female, in no distress. Afebrile. Anicteric. Acyanotic. HEENT: Normocephalic, atraumatic. Oral mucosa is moist. CARDIOVASCULAR: Regular rhythm and rate with normal heart sounds one and two. RESPIRATORY: Good air entry bilaterally with no crackle or rhonchi or use of accessory muscles. GI: Full, soft, nontender, nondistended with normal bowel sounds. EXTREMITIES: Grossly normal-looking with no edema or erythema. FAMILY WELFARE SOCIAL WORK PROFESSOR: Conscious, alert, and oriented x3 with appropriate mental status. Cranial nerves 2 through 12 are grossly intact. ASSESSMENT: 1. Acute on chronic renal failure, now deemed end-stage renal disease, on hemodialysis. 2. Nephrotic range proteinuria: Due to nephrotic nephropathy. 3. Hypertension: Control is acceptable. 4. Diabetes mellitus with complications. 5. Generalized edema: Resolved. The patient is euvolemic currently. 6. Exertional dyspnea: Due to acute CHF related to fluid overload. Resolved. The patient is now on room air. PLAN: We will dialyze the patient today for 4 hours. We will continue current medications. The patient can be discharged once outpatient dialysis arrangement is concluded. Anticipated the patient going home today with current medications. We will follow patient in the dialysis unit, if she is discharged today. Job ID: [id number]
[2019-07-28] MEDS: HumuLIN 70/30 (300 UNITS/3 ML VIAL) SC SCH (08:45)
[2019-07-28] MEDS: Lisinopril 20 MG TAB PO SCH (08:46)
[2019-07-28] MEDS: Carvedilol 6.25 MG TAB PO SCH (08:46)
[2019-07-28] MEDS: NIFEdipine XL 60 MG TAB PO SCH (08:47)
[2019-07-28] MEDS: Ferrous Sulfate 325 MG TAB PO SCH (08:50)
[2019-07-28] MEDS: Sevelamer Carbonate 800 MG TAB PO SCH ×2 (08:51→12:14)
[2019-07-28] MEDS: Calcium Carbonate + Vit D 1 TAB PO SCH (08:52)
[2019-07-28] MEDS: Calcitriol 0.25 MCG CAP PO SCH (08:52)
[2019-07-28] MEDS: Heparin 5,000 UNITS/ML VIAL SC SCH (08:52)
[2019-07-28 08:53] VITALS: BP 151/73
[2019-07-28] MEDS: Senokot S 8.6-50 MG TAB PO SCH (12:14)
[2019-07-28] MEDS: Torsemide 100 MG TAB PO SCH (12:14)
[2019-07-28] MEDS: Famotidine 20 MG TAB PO SCH (12:15)
--- NOTE | 2019-07-28 13:25 | PDOC.HOSPP ---
- Subjective Encounter Date: 07/28/19 Encounter Time: 11:30 Subjective: seen in HD area. no acute complaints or events noted. - Objective Vital Signs & Weight: Vital Signs (12 hours) Temp Pulse Resp BP BP Pulse Ox 07/28/19 08:47 77 07/28/19 08:46 151/73 H 07/28/19 07:19 97.8 F 77 20 136/73 97 Weight Admit Weight 171 lb 15.369 oz Weight 148 lb 5.938 oz Result Diagrams: 07/26/19 05:30 07/26/19 03:30 Additional Labs: Accuchecks 07/28/19 07/27/19 07/27/19 04:22 19:35 16:21 POC Glucose 122 H 247 H 161 H Hospitalist ROS - Medication Medications: Active Medications Generic Name Dose Route Start Last Admin Trade Name Freq PRN Reason Stop Dose Admin Acetaminophen 1,000 mg 07/16/19 11:30 07/23/19 16:46 Tylenol PO 1,000 mg Q6H PRN Administration Moderate Pain (4-6) Calcitriol 0.25 mcg 07/16/19 09:00 07/28/19 08:52 Rocaltrol PO Not Given DAILY [facility] Calcium/Vitamin D 1 tab 07/18/19 09:00 07/28/19 08:52 Caltrate 600 + Vit D PO Not Given DAILY [facility] Carvedilol 6.25 mg 07/24/19 21:00 07/28/19 08:46 Coreg PO 6.25 mg BID [facility] Administration Clonidine 0.1 mg 07/15/19 16:50 07/17/19 17:51 Catapres PO 0.1 mg Q4H PRN Administration SBP Greater Than 180 Epoetin Ky-epbx 7,500 unit 07/20/19 17:00 07/27/19 16:54 Retacrit SC 7,500 unit Q7D LUISA Administration Ergocalciferol 1.25 mg 07/22/19 09:00 07/22/19 11:00 Drisdol PO 1.25 mg Q7DAYS LUISA Administration Famotidine 20 mg 07/16/19 09:00 07/28/19 12:15 Pepcid PO Not Given DAILY [facility] Ferrous Sulfate 325 mg 07/20/19 17:00 07/28/19 08:50 Feosol PO Not Given BID-WM LUISA Heparin Sodium (Porcine) 5,000 units 07/15/19 21:00 07/28/19 08:52 Heparin SC Not Given BID LUISA Hydralazine HCl 10 mg 07/15/19 16:50 07/17/19 16:58 Apresoline SLOW IVP 10 mg Q4H PRN Administration SBP Greater Than 180 Insulin Human Isoph/Insulin Regular 10 units 07/24/19 21:00 07/28/19 08:45 Humulin 70/30 SC 10 unit BID LUISA Administration Insulin Human Lispro 0 units 07/15/19 02:52 07/26/19 18:49 Humalog SC 4 unit .MILD SLIDING SCALE PRN Administration Mild Correctional Scale Insulin Human Lispro 0 units 07/15/19 02:52 07/27/19 20:07 Humalog SC 2 unit .BEDTIME SLIDING SC PRN Administration Bedtime Correctional Scale Lisinopril 20 mg 07/26/19 09:00 07/28/19 08:46 Zestril PO 20 mg BID LUISA Administration Nifedipine 60 mg 07/24/19 21:00 07/28/19 08:47 Procardia Xl PO 60 mg BID LUISA Administration Senna/Docusate Sodium 2 tab 07/15/19 21:00 07/28/19 12:14 Senokot S PO Not Given BID LUISA Sevelamer Carbonate 1,600 mg 07/16/19 08:00 07/28/19 12:14 Renvela PO Not Given TID-WM LUISA Torsemide 100 mg 07/23/19 09:00 07/28/19 12:14 Demadex PO Not Given DAILY LUISA Tuberculin PPD 0.1 ml 07/26/19 13:15 07/26/19 15:07 Tuberculin Ppd I-DERMAL 07/29/19 13:16 0.1 ml ONE LUISA Administration - Exam General Appearance: NAD, awake alert Eye: PERRL ENT: normocephalic atraumatic Neck: supple Heart: RRR Respiratory: CTAB Gastrointestinal: normal bowel sounds Neurological: no focal deficits Hosp A/P - Plan End stage renal disease) on dialysis AV fistula -RUE -on cinacalcet, calcitriol, caCo3, and ergocaliciferon, phoslo (2) Anemia in CKD (chronic kidney disease) -stable -FeSO4 (3) Diabetes mellitus Code(s): E11.9 - TYPE 2 DIABETES MELLITUS WITHOUT COMPLICATIONS Status: Chronic BG still high -schedule low dose humalog -fw on a1c. (4) Hypertension - Nifedipine and coreg, hydralazine. with holding parameters. -one episode of high BP this am, repeat levels ok. -hold Lisinopril/hydrala as BP on the low side since y'day. CM for outpt coordination for [facility] HD awaiting for outpt HD to be arranged prior to dc. 10th - pt getting m/w/f HD. no acute medical issues at this time. pending HD placement. 11th -BG AND bp acceptable range. -pt seen and talk to her and son. -d/w CM -pending OP HD chair. -no acute issues. BP controlled. -[facility] HD chair confimation and placement pending.
[2019-07-28] MEDS ORDERED: Heparin 10,000 UNITS/ 10 ML VIAL ONE (15:56)
--- NOTE | 2019-07-29 05:10 | DIS ---
DATE OF ADMISSION: 07/15/2019 DATE OF DISCHARGE: 07/28/2019 DISCHARGE DIAGNOSES: 1. End-stage renal disease, started on hemodialysis with a right upper extremity arteriovenous fistula. 2. Anemia on chronic kidney disease. 3. Type 2 diabetes mellitus. 4. Hypertension. DISCHARGE MEDICATIONS: 1. Calcitriol daily. 2. Calcium carbonate plus vitamin D 1 tablet daily. 3. Coreg 6.25 mg twice daily. 4. Drisdol (ergocalciferol) 1.25 mg every 7 days. 5. Lisinopril 20 mg twice daily. 6. Procardia XL 60 mg twice daily. 7. Renvela 600 mg 3 times daily. 8. Demadex (Torsemide) 100 mg daily. PHYSICAL EXAMINATION ON THE DAY OF DISCHARGE: VITAL SIGNS: Temperature is 97.8 , blood pressure 151/73, saturating 97% on room air. GENERAL: The patient is alert, oriented. She is Arabic-speaking only. She appears well. CARDIOVASCULAR: Regular rate and rhythm without murmurs, rubs, or gallops. LUNGS: Clear to auscultation bilaterally without wheezing, rales, or rhonchi. ABDOMEN: Soft, nontender, nondistended. Good bowel sounds. EXTREMITIES: Without any pitting edema. Right upper extremity AV fistula. HOSPITAL COURSE: This is a 63-year-old female admitted on July 15 with shortness of breath on exertion, overall generalized weakness and fatigue of few days duration. She also had lower extremity swelling. She had significant proteinuria, hyperkalemia and acute renal failure on presentation, renal followed. There was a concern for rhabdomyolysis and treated appropriately. Hyperkalemia was treated appropriately with calcium gluconate as well as Kayexalate. She had a right arm AV fistula placed. She had gone through few dialysis while inpatient. Her discharge delayed due to her lack of insurance and getting the [facility] dialysis chair, that has been arranged today. Patient is clinically stable to be discharged home today. DISCHARGE INSTRUCTIONS: 1. Activity as tolerated. 2. Renal and diabetic diet. 3. Follow up with Dr. Prince Parson, her Yardmaster. Discharge time took over 30 minutes. Job ID: [id number] [id number]
== END 2019-07-28 16:23 | disposition home or self-care (01) | DRG 673 ==
LOC: ERS 23:49 → ERHOLD 07-15 01:49 → 2NO 07-15 16:45 → T4-B 07-18 21:17
PROVIDERS: ADMIT Internal Medicine; ATTEND Internal Medicine
PROC: 0JH63XZ Insertion of Tunneled Vascular Access Device into Chest Subcutaneous Tissue and Fascia, Percutaneous Approach (ICD-10-PCS; principal; 2019-07-16)
PROC: 02HV33Z Insertion of Infusion Device into Superior Vena Cava, Percutaneous Approach (ICD-10-PCS; 2019-07-16)
PROC: B548ZZA Ultrasonography of Superior Vena Cava, Guidance (ICD-10-PCS; 2019-07-16)
PROC: 031B0ZF Bypass Right Radial Artery to Lower Arm Vein, Open Approach (ICD-10-PCS; 2019-07-21)
DX: N17.9 Acute kidney failure, unspecified (principal); I50.31 Acute diastolic (congestive) heart failure; E87.1 Hypo-osmolality and hyponatremia; E87.2 Acidosis; I13.2 Hypertensive heart and chronic kidney disease with heart failure and with stage 5 chronic kidney disease, or end stage renal disease; E87.5 Hyperkalemia; E83.51 Hypocalcemia; N18.6 End stage renal disease; N25.81 Secondary hyperparathyroidism of renal origin; D63.1 Anemia in chronic kidney disease; E55.9 Vitamin D deficiency, unspecified; E66.01 Morbid (severe) obesity due to excess calories; E11.22 Type 2 diabetes mellitus with diabetic chronic kidney disease; Z68.32 Body mass index [BMI] 32.0-32.9, adult
CPT/HCPCS: 36415; 36416; 51702; 71045; 76770; 80053; 80069; 81003; 81015; 82274; 82306; 82550; 82553; 82570; 82575; 82728; 83036; 83540; 83550; 83735; 83880; 83970; 84100; 84156; 84300; 84443; 84484; 84540; 84550; 85025; 85027; 85379; 85610; 85730; 86580; 86704; 86706; 86803; 87340; 90471; 90686; 90935; 90945; 93005; 93306; 93798; 93970; 96360; 96361; C1752; C1769; G0008; G0257; G0365; J0360; J0670; J0690; J1642; J1644; J1815; J1940; J2001; J2250; J2704; J2720; J2916; J3490; J7050; J7070; Q5105; S0020